=== PATIENT | female | born 1935 | race African-American/Black ===

== ENCOUNTER 2017-10-21 05:09 | Inpatient (IN) | payer MEDICARE, OTHER ==
[~2017-10-21] VITALS: Ht 172.7 cm; Wt 75.4 kg
[2017-10-21] VITALS (60 sets, daily range): BP systolic 108–168; BP diastolic 28–67
[2017-10-21] MEDS ORDERED: ETOMIDATE (2MG/ML) 20ML VIAL IV ONE ×2 (05:14→05:30)
[2017-10-21] MEDS ORDERED: SUCCINYLCHOLINE CHLORIDE 20 MG/ML 10ML VIAL IV ONE ×2 (05:15→05:30)
[2017-10-21] MEDS ORDERED: MIDAZOLAM DRIP 50 mg/50mL 50 ML IV ONE (05:29)
[2017-10-21] MEDS ORDERED: FUROSEMIDE 20 MG/2 ML VIAL IV ONE (05:30)
[2017-10-21] MEDS ORDERED: methylPREDNISolone SOD SUCC 125 MG/2 ML VL ONE (05:37)
[2017-10-21] MEDS ORDERED: methylPREDNISolone SOD SUCC 125 MG/2 ML VL IV ONE (05:45)
[2017-10-21] MEDS ORDERED: PROPOFOL 100 ML IV ONE (06:05)
[2017-10-21 06:14] LABS: Hemoglobin 9.3 g/dL (12.2-16.2)
[2017-10-21 06:17] LABS: Hematocrit 31.8 % (36.0-46.0); Mean Corpuscular Hemoglobin 25.3 pg (28.0-32.0); Mean Corpuscular Hgb Conc. 29.4 g/dL (32.0-36.0); Platelet Count (auto) 401 10^3/uL (140-450); Red Cell Distribution Width 19.5 % (11.8-14.3)
[2017-10-21 06:33] LABS: INR 1.17 (0.9-1.15); Partial Thromboplastin Time 25.6 sec (23.78-33.04); Prothrombin Time 12.4 sec (9.27-12.13)
[2017-10-21 06:37] LABS: Band Neutrophils % (manual) 0; Basophils % (manual) 0 (0.0-2.0); Blast Cells 0; Promyelocytes % 0
[2017-10-21 07:07] LABS: Albumin 2.8 g/dL (3.4-5.0); BUN/Creatinine Ratio 10.8; Bilirubin, Total 1.1 mg/dL (0.2-1.0); Calcium 8.7 mg/dL (8.5-10.1); Magnesium 2.8 mg/dL (1.6-2.6); Potassium 4.1 mmol/L (3.5-5.1)
[2017-10-21] MEDS: MIDAZOLAM DRIP 50 mg/50mL 50 ML IV SCH ×5 (07:26→20:13)
[2017-10-21 07:29] LABS: Urine Bacteria NONE SEEN /hpf (None Seen); Urine Blood Negative /uL (Negative); Urine Specific Gravity 1.017 (1.001-1.035); Urine WBC 1 /hpf (0 - 5)
[2017-10-21 08:55] LABS: Eosinophils % (manual) 2 (0-7); Lymphocytes % (manual) 34 (10.0-50.0); Metamyelocytes % 1; Monocytes % (manual) 12 (0-12); Myelocytes % 1; Reactive Lymphocytes 2
[2017-10-21] MEDS ORDERED: DEXTROSE (50%) 50ML SYRG IV PRN (09:30)
[2017-10-21] MEDS ORDERED: MORPHINE SULF INJ 2 MG/ML SYRINGE 1ML IV PRN ×2 (09:45)
[2017-10-21] MEDS ORDERED: VANCOMYCIN PER PHARMACY 0 MG IV SCH (09:45)
[2017-10-21] MEDS ORDERED: ONDANSETRON HCL 4 MG/2 ML VIAL IV PRN (09:45)
[2017-10-21] MEDS ORDERED: PIPERACILLIN-TAZOB 2.25GM 50 ML IV ONE ×2 (09:45→09:48)
[2017-10-21] MEDS ORDERED: NITROGLYCERIN 0.4 MG SL TAB SL PRN (09:45)
[2017-10-21] MEDS: PROPOFOL 100 ML IV SCH ×2 (09:47→15:36)
[2017-10-21] MEDS ORDERED: FUROSEMIDE 40 MG/4 ML VIAL IV SCH ×2 (10:00→18:00)
[2017-10-21] MEDS: FAMOTIDINE (10MG/ML) 2ML VL IV SCH (10:00)
[2017-10-21] MEDS: SODIUM CHLORIDE 0.9% 1,000 ML IV SCH (10:15)
[2017-10-21] MEDS: ENOXAPARIN SOD 40 MG/0.4 ML SYRINGE SC SCH (10:15)
[2017-10-21] MEDS ORDERED: VANCOMYCIN 1GM/250ML 250 ML IV ONE (11:00)
[2017-10-21] MEDS: PANTOPRAZOLE 40 MG/10 ML VIAL IV SCH (11:12)
[2017-10-21] MEDS: methylPREDNISolone SOD SUCC 40 MG/ML VL IV SCH ×2 (11:20→18:00)
[2017-10-21] MEDS: ALBUTEROL SULF 2.5 MG/0.5ML(0.5%) NEB SOLN NEB SCH ×2 (12:00→18:12)
[2017-10-21] MEDS: IPRATROPIUM BROM 0.5 MG/2.5ML INH SOL NEB SCH ×2 (12:00→18:12)
[2017-10-21] MEDS: InsuLIN REG 1unit/0.01ml Soln (100units/ml) SC SCH ×2 (12:01→18:00)
[2017-10-21] MEDS: ACCU-CHEK COMFORT CURVE STRIP VI SCH ×2 (12:01→18:00)
[2017-10-21] MEDS: PIPERACILLIN-TAZOB 2.25GM 50 ML IV SCH ×2 (12:45→18:00)
[2017-10-21] MEDS ORDERED: AMLO5TAB2 PO (17:49)
[2017-10-21] MEDS ORDERED: ENOX40IN7 SC (17:49)
[2017-10-21] MEDS ORDERED: ASCO500T11 PO (17:49)
[2017-10-21] MEDS ORDERED: BACL10TA PO (17:49)
[2017-10-21] MEDS ORDERED: INSUINJ18 SC (17:49)
[2017-10-21] MEDS ORDERED: TEMA30CA PO (17:49)
[2017-10-21] MEDS ORDERED: PROM25TA5 PO (17:49)
[2017-10-21] MEDS ORDERED: CIPR-187 PO (17:49)
[2017-10-21] MEDS ORDERED: METO-158 PO (17:49)
[2017-10-21] MEDS ORDERED: INSLANTI SC (17:49)
[2017-10-21] MEDS ORDERED: FURO20TA PO (17:49)
[2017-10-21] MEDS ORDERED: PERCOT PO (17:49)
[2017-10-21] MEDS ORDERED: HYDR-4296 PO (17:49)
[2017-10-21] MEDS ORDERED: DRON2.5C PO (17:49)
[2017-10-21] MEDS: POTASSIUM CHL 20MEQ/100ML 100 ML IV SCH (23:30)
[2017-10-21] MEDS: FUROSEMIDE INJECTION 250 MG in D5W 5% 225 ML IV SCH (23:30)
[2017-10-22] VITALS (108 sets, daily range): BP systolic 120–185; BP diastolic 39–99
[2017-10-22] MEDS: ALBUTEROL SULF 2.5 MG/0.5ML(0.5%) NEB SOLN NEB SCH ×4 (00:23→18:34)
[2017-10-22] MEDS: IPRATROPIUM BROM 0.5 MG/2.5ML INH SOL NEB SCH ×4 (00:23→18:34)
[2017-10-22] MEDS: SODIUM CHLORIDE 0.9% 1,000 ML IV SCH ×2 (02:30→19:01)
[2017-10-22 03:54] LABS: Basophils # (auto) 0 uL; Eosinophils # (auto) 0 uL; Hemoglobin 9.5 g/dL (12.2-16.2); Lymphocytes # (auto) 1.3 uL; Lymphocytes % (auto) 4.7 % (10.0-50.0); Nucleated Red Blood Cells % 0.2 %
[2017-10-22 03:56] LABS: Basophils % (auto) 0.1 % (0.0-2.0); Hematocrit 30.7 % (36.0-46.0); Mean Corpuscular Hemoglobin 25.3 pg (28.0-32.0); Mean Corpuscular Hgb Conc. 30.8 g/dL (32.0-36.0); Monocytes # (auto) 0.6 uL; Monocytes % (auto) 2.2 % (0.0-12.0); Platelet Count (auto) 442 10^3/uL (140-450); Red Blood Cells 3.75 10^6/uL (4.0-5.20); Red Cell Distribution Width 18.2 % (11.8-14.3); White Blood Cell 27.9 10^3/uL (4.4-10.8)
[2017-10-22 04:10] LABS: Potassium 3.5 mmol/L (3.5-5.1)
[2017-10-22 04:16] LABS: Albumin 2.4 g/dL (3.4-5.0); BUN/Creatinine Ratio 14.1; Calcium 8.5 mg/dL (8.5-10.1)
[2017-10-22 04:20] LABS: Total Protein 7.7 g/dL (6.4-8.2)
[2017-10-22] MEDS: ACCU-CHEK COMFORT CURVE STRIP VI SCH ×4 (06:12→18:44)
[2017-10-22] MEDS: methylPREDNISolone SOD SUCC 40 MG/ML VL IV SCH ×4 (06:41→18:44)
[2017-10-22] MEDS: PIPERACILLIN-TAZOB 2.25GM 50 ML IV SCH ×4 (06:42→18:44)
[2017-10-22] MEDS: InsuLIN REG 1unit/0.01ml Soln (100units/ml) SC SCH ×4 (06:42→18:44)
[2017-10-22] MEDS: POTASSIUM CHL 20MEQ/100ML 100 ML IV SCH ×3 (08:17→22:00)
[2017-10-22] MEDS: MIDAZOLAM DRIP 50 mg/50mL 50 ML IV SCH ×3 (08:28→19:01)
[2017-10-22] MEDS: FAMOTIDINE (10MG/ML) 2ML VL IV SCH (10:30)
[2017-10-22] MEDS: PANTOPRAZOLE 40 MG/10 ML VIAL IV SCH (10:31)
[2017-10-22] MEDS: ENOXAPARIN SOD 40 MG/0.4 ML SYRINGE SC SCH (10:33)
[2017-10-22] MEDS ORDERED: POTASSIUM CHL 20MEQ/100ML 100 ML IV ONE ×2 (11:15)
[2017-10-22] MEDS: PROPOFOL 100 ML IV SCH ×2 (13:05→19:00)
[2017-10-22] MEDS: amLODIPine BESYLATE 5 MG TAB PO SCH (13:08)
[2017-10-22] MEDS: METOPROLOL TARTRATE 25 MG TAB PO SCH ×2 (14:25→22:00)
[2017-10-22] MEDS: FUROSEMIDE INJECTION 250 MG in D5W 5% 225 ML IV SCH (18:00)
[2017-10-22] MEDS ORDERED: ACETAMINOPHEN IV 100 ML IV ONE (20:22)
[2017-10-23] VITALS (88 sets, daily range): BP systolic 48–174; BP diastolic 31–137
[2017-10-23] MEDS: ALBUTEROL SULF 2.5 MG/0.5ML(0.5%) NEB SOLN NEB SCH ×4 (00:15→18:20)
[2017-10-23] MEDS: IPRATROPIUM BROM 0.5 MG/2.5ML INH SOL NEB SCH ×4 (00:15→18:20)
[2017-10-23] MEDS: MIDAZOLAM DRIP 50 mg/50mL 50 ML IV SCH ×2 (01:02→18:30)
[2017-10-23] MEDS: InsuLIN REG 1unit/0.01ml Soln (100units/ml) SC SCH ×4 (01:04→18:33)
[2017-10-23 05:30] LABS: BUN/Creatinine Ratio 14.3; Basophils # (auto) 0 uL; Calcium 8.5 mg/dL (8.5-10.1); Eosinophils # (auto) 0 uL; Hemoglobin 9.5 g/dL (12.2-16.2); Lymphocytes % (auto) 2.9 % (10.0-50.0); Mean Corpuscular Hemoglobin 25.2 pg (28.0-32.0); Mean Corpuscular Hgb Conc. 30.8 g/dL (32.0-36.0); Mean Corpuscular Volume 81.9 fL (80.0-100.0); Monocytes # (auto) 0.7 uL; Monocytes % (auto) 2.2 % (0.0-12.0); Neutrophils # (auto) 31.6 uL; Neutrophils % (auto) 94.9 % (37.0-80.0); Nucleated Red Blood Cells % 0.2 %; Platelet Count (auto) 576 10^3/uL (140-450); Potassium 3.6 mmol/L (3.5-5.1); Red Blood Cells 3.78 10^6/uL (4.0-5.20); Red Cell Distribution Width 19.3 % (11.8-14.3)
[2017-10-23] MEDS: methylPREDNISolone SOD SUCC 40 MG/ML VL IV SCH ×4 (06:00→18:20)
[2017-10-23] MEDS: POTASSIUM CHL 20MEQ/100ML 100 ML IV SCH ×3 (06:00→22:12)
[2017-10-23] MEDS: ACCU-CHEK COMFORT CURVE STRIP VI SCH ×4 (06:00→18:21)
[2017-10-23] MEDS: PIPERACILLIN-TAZOB 2.25GM 50 ML IV SCH ×4 (06:00→18:21)
[2017-10-23 06:38] LABS: White Blood Cell 33.3 10^3/uL (4.4-10.8)
[2017-10-23] MEDS: ENOXAPARIN SOD 40 MG/0.4 ML SYRINGE SC SCH (09:20)
[2017-10-23] MEDS: FAMOTIDINE (10MG/ML) 2ML VL IV SCH (09:20)
[2017-10-23] MEDS: PANTOPRAZOLE 40 MG/10 ML VIAL IV SCH (09:20)
[2017-10-23] MEDS: PROPOFOL 100 ML IV SCH (09:21)
[2017-10-23] MEDS: amLODIPine BESYLATE 5 MG TAB PO SCH (09:22)
[2017-10-23] MEDS: METOPROLOL TARTRATE 25 MG TAB PO SCH ×2 (10:28→22:00)
[2017-10-23] MEDS ORDERED: OXYCODONE W/ ACETAMINOPHEN 5/325MG TABLET PO ONE (10:30)
[2017-10-23] MEDS ORDERED: LIDOCAINE 1% (LOCAL ANESTH.) PF 5ml SDV ID ONE (15:45)
[2017-10-23] MEDS: VANCOMYCIN 1GM/250ML 250 ML IV SCH (16:30)
[2017-10-23] MEDS: FUROSEMIDE INJECTION 250 MG in D5W 5% 225 ML IV SCH (20:07)
[2017-10-23] MEDS: SODIUM CHLOR 0.9% PF (SALINE LOCK) 10ML VIAL/SYR IV SCH (22:08)
[2017-10-23] MEDS ORDERED: ALBUMIN 5% 250 ML IV ONE (22:46)
[2017-10-23] MEDS ORDERED: ALBUMIN 5% 250 ML IV SCH (23:00)
[2017-10-24] VITALS (102 sets, daily range): BP systolic 75–141; BP diastolic 43–82
[2017-10-24] MEDS: NOREPINEPHRINE 8 MG/250ML KIT 250 ML IV SCH ×2 (00:14→19:33)
[2017-10-24] MEDS: ALBUTEROL SULF 2.5 MG/0.5ML(0.5%) NEB SOLN NEB SCH ×4 (00:18→17:59)
[2017-10-24] MEDS: IPRATROPIUM BROM 0.5 MG/2.5ML INH SOL NEB SCH ×4 (00:18→17:59)
[2017-10-24] MEDS: ACCU-CHEK COMFORT CURVE STRIP VI SCH ×4 (00:23→18:17)
[2017-10-24] MEDS: methylPREDNISolone SOD SUCC 40 MG/ML VL IV SCH ×4 (00:23→22:06)
[2017-10-24] MEDS: PIPERACILLIN-TAZOB 2.25GM 50 ML IV SCH ×4 (00:23→18:17)
[2017-10-24] MEDS: InsuLIN REG 1unit/0.01ml Soln (100units/ml) SC SCH ×4 (00:24→18:27)
[2017-10-24] MEDS: MIDAZOLAM DRIP 50 mg/50mL 50 ML IV SCH ×4 (00:30→20:41)
[2017-10-24 04:10] LABS: Basophils # (auto) 0 uL; Eosinophils # (auto) 0 uL; Nucleated Red Blood Cells % 0.2 %
[2017-10-24 04:13] LABS: Basophils % (auto) 0.1 % (0.0-2.0); Hematocrit 32.9 % (36.0-46.0); Hemoglobin 10.3 g/dL (12.2-16.2); Lymphocytes # (auto) 0.7 uL; Lymphocytes % (auto) 2.2 % (10.0-50.0); Mean Corpuscular Hemoglobin 25.7 pg (28.0-32.0); Mean Corpuscular Hgb Conc. 31.2 g/dL (32.0-36.0); Mean Corpuscular Volume 82.5 fL (80.0-100.0); Monocytes # (auto) 0.7 uL; Monocytes % (auto) 2.2 % (0.0-12.0); Neutrophils # (auto) 29.6 uL; Neutrophils % (auto) 95.5 % (37.0-80.0); Platelet Count (auto) 601 10^3/uL (140-450); Red Blood Cells 3.98 10^6/uL (4.0-5.20); Red Cell Distribution Width 19.3 % (11.8-14.3)
[2017-10-24 04:32] LABS: Potassium 3.2 mmol/L (3.5-5.1)
[2017-10-24 05:31] LABS: Calcium 8.9 mg/dL (8.5-10.1)
[2017-10-24 05:56] LABS: BUN/Creatinine Ratio 17.9
[2017-10-24] MEDS: POTASSIUM CHL 20MEQ/100ML 100 ML IV SCH (06:00)
[2017-10-24] MEDS ORDERED: SODIUM CHLORIDE 0.9% 1,000 ML IV ONE (06:30)
[2017-10-24] MEDS ORDERED: DEXTROSE (50%) 50ML SYRG IV PRN (06:30)
[2017-10-24] MEDS: ALBUMIN 25% 100 ML IV SCH ×3 (08:09→18:23)
[2017-10-24] MEDS: PROPOFOL 100 ML IV SCH ×3 (09:23→20:41)
[2017-10-24] MEDS: FAMOTIDINE (10MG/ML) 2ML VL IV SCH (09:41)
[2017-10-24] MEDS: PANTOPRAZOLE 40 MG/10 ML VIAL IV SCH (09:42)
[2017-10-24] MEDS: ENOXAPARIN SOD 80 MG/0.8ML SYRINGE SC SCH ×2 (09:42→22:06)
[2017-10-24] MEDS: SODIUM CHLOR 0.9% PF (SALINE LOCK) 10ML VIAL/SYR IV SCH ×2 (09:42→22:06)
[2017-10-24] MEDS: METOPROLOL TARTRATE 25 MG TAB PO SCH ×2 (10:00→22:00)
[2017-10-24] MEDS: VANCOMYCIN 1GM/250ML 250 ML IV SCH (14:08)
[2017-10-24] MEDS: FUROSEMIDE INJECTION 250 MG in D5W 5% 225 ML IV SCH (18:00)
[2017-10-24] MEDS ORDERED: InsuLIN REG 1unit/0.01ml Soln (100units/ml) IV ONE (18:30)
[2017-10-25] VITALS (106 sets, daily range): BP systolic 108–179; BP diastolic 47–88
[2017-10-25] MEDS: ALBUTEROL SULF 2.5 MG/0.5ML(0.5%) NEB SOLN NEB SCH ×4 (00:19→18:30)
[2017-10-25] MEDS: IPRATROPIUM BROM 0.5 MG/2.5ML INH SOL NEB SCH ×4 (00:19→18:30)
[2017-10-25] MEDS: ALBUMIN 25% 100 ML IV SCH ×4 (00:30→11:49)
[2017-10-25] MEDS: MIDAZOLAM DRIP 50 mg/50mL 50 ML IV SCH ×5 (00:48→22:47)
[2017-10-25] MEDS: PROPOFOL 100 ML IV SCH ×3 (00:48→08:55)
[2017-10-25 03:48] LABS: Basophils # (auto) 0 uL; Eosinophils # (auto) 0 uL; Mean Corpuscular Volume 83.4 fL (80.0-100.0); Monocytes % (auto) 3.6 % (0.0-12.0)
[2017-10-25 03:50] LABS: Hematocrit 27.9 % (36.0-46.0); Hemoglobin 8.5 g/dL (12.2-16.2); Lymphocytes % (auto) 3.9 % (10.0-50.0); Mean Corpuscular Hemoglobin 25.4 pg (28.0-32.0); Mean Corpuscular Hgb Conc. 30.5 g/dL (32.0-36.0); Neutrophils # (auto) 24.8 uL; Neutrophils % (auto) 92.5 % (37.0-80.0); Nucleated Red Blood Cells % 0.1 %; Platelet Count (auto) 464 10^3/uL (140-450); Red Blood Cells 3.35 10^6/uL (4.0-5.20); Red Cell Distribution Width 18.7 % (11.8-14.3); White Blood Cell 26.9 10^3/uL (4.4-10.8)
[2017-10-25 04:04] LABS: BUN/Creatinine Ratio 24.1; Calcium 8.7 mg/dL (8.5-10.1); Potassium 3.3 mmol/L (3.5-5.1)
[2017-10-25] MEDS: ACCU-CHEK COMFORT CURVE STRIP VI SCH ×4 (06:00→17:00)
[2017-10-25] MEDS: InsuLIN REG 1unit/0.01ml Soln (100units/ml) SC SCH ×4 (06:00→17:02)
[2017-10-25] MEDS ORDERED: FUROSEMIDE 40 MG/4 ML VIAL IV SCH (06:15)
[2017-10-25] MEDS: PIPERACILLIN-TAZOB 2.25GM 50 ML IV SCH ×4 (06:32→17:00)
[2017-10-25] MEDS: INSULIN NPH Isophane (HUMAN) 1unit/0.01ml Susp(100units/ml) SC SCH ×2 (07:06→18:11)
[2017-10-25] MEDS: FAMOTIDINE (10MG/ML) 2ML VL IV SCH (10:00)
[2017-10-25] MEDS: METOPROLOL TARTRATE 25 MG TAB PO SCH ×2 (10:00→21:48)
[2017-10-25] MEDS: PANTOPRAZOLE 40 MG/10 ML VIAL IV SCH (10:37)
[2017-10-25] MEDS: methylPREDNISolone SOD SUCC 40 MG/ML VL IV SCH (10:37)
[2017-10-25] MEDS: ENOXAPARIN SOD 80 MG/0.8ML SYRINGE SC SCH ×2 (10:37→21:47)
[2017-10-25] MEDS: POTASSIUM EFFERVESENT TAB 25 MEQ GT SCH ×2 (10:37→21:48)
[2017-10-25] MEDS: FUROSEMIDE INJECTION 250 MG in D5W 5% 225 ML IV SCH (10:38)
[2017-10-25] MEDS: SODIUM CHLOR 0.9% PF (SALINE LOCK) 10ML VIAL/SYR IV SCH ×2 (10:38→21:48)
[2017-10-25] MEDS ORDERED: Glucerna 1.2 Cal 1Liter BOTTLE GT SCH (15:30)
[2017-10-25] MEDS: VANCOMYCIN 1GM/250ML 250 ML IV SCH (15:34)
[2017-10-25] MEDS ORDERED: BENAZEPRIL HCL 10 MG TAB PO ONE (18:45)
[2017-10-25 19:49] LABS: Magnesium 2.2 mg/dL (1.6-2.6); Potassium 4.1 mmol/L (3.5-5.1)
[2017-10-25] MEDS: NOREPINEPHRINE 8 MG/250ML KIT 250 ML IV SCH (22:40)
[2017-10-26] VITALS (101 sets, daily range): BP systolic 85–185; BP diastolic 52–89
[2017-10-26] MEDS: ALBUTEROL SULF 2.5 MG/0.5ML(0.5%) NEB SOLN NEB SCH ×4 (00:13→18:19)
[2017-10-26] MEDS: IPRATROPIUM BROM 0.5 MG/2.5ML INH SOL NEB SCH ×4 (00:13→18:19)
[2017-10-26] MEDS: ACCU-CHEK COMFORT CURVE STRIP VI SCH ×4 (00:31→18:05)
[2017-10-26] MEDS: InsuLIN REG 1unit/0.01ml Soln (100units/ml) SC SCH ×4 (00:35→18:18)
[2017-10-26] MEDS: PIPERACILLIN-TAZOB 2.25GM 50 ML IV SCH ×4 (00:36→18:18)
[2017-10-26] MEDS: PROPOFOL 100 ML IV SCH ×3 (00:41→13:38)
[2017-10-26 03:56] LABS: Eosinophils # (auto) 0 uL; Hemoglobin 8.9 g/dL (12.2-16.2)
[2017-10-26 03:59] LABS: Basophils # (auto) 0.1 uL; Basophils % (auto) 0.3 % (0.0-2.0); Hematocrit 28.6 % (36.0-46.0); Lymphocytes # (auto) 1.4 uL; Lymphocytes % (auto) 5.8 % (10.0-50.0); Mean Corpuscular Hemoglobin 25.8 pg (28.0-32.0); Mean Corpuscular Volume 83.3 fL (80.0-100.0); Monocytes # (auto) 1.2 uL; Monocytes % (auto) 4.8 % (0.0-12.0); Neutrophils # (auto) 21.9 uL; Neutrophils % (auto) 89.1 % (37.0-80.0); Nucleated Red Blood Cells % 0.3 %; Platelet Count (auto) 409 10^3/uL (140-450); Red Blood Cells 3.43 10^6/uL (4.0-5.20); Red Cell Distribution Width 18.8 % (11.8-14.3); White Blood Cell 24.6 10^3/uL (4.4-10.8)
[2017-10-26 04:07] LABS: BUN/Creatinine Ratio 29.9; Calcium 9.1 mg/dL (8.5-10.1); Magnesium 2.7 mg/dL (1.6-2.6); Potassium 3.8 mmol/L (3.5-5.1)
[2017-10-26] MEDS: INSULIN NPH Isophane (HUMAN) 1unit/0.01ml Susp(100units/ml) SC SCH ×2 (08:16→18:18)
[2017-10-26] MEDS: PANTOPRAZOLE 40 MG/10 ML VIAL IV SCH (09:27)
[2017-10-26] MEDS: VANCOMYCIN 1GM/250ML 250 ML IV SCH (09:27)
[2017-10-26] MEDS: FAMOTIDINE (10MG/ML) 2ML VL IV SCH (09:27)
[2017-10-26] MEDS: SODIUM CHLOR 0.9% PF (SALINE LOCK) 10ML VIAL/SYR IV SCH ×2 (09:28→22:00)
[2017-10-26] MEDS: ENOXAPARIN SOD 80 MG/0.8ML SYRINGE SC SCH ×2 (09:28→23:11)
[2017-10-26] MEDS: METOPROLOL TARTRATE 25 MG TAB PO SCH ×2 (09:28→23:10)
[2017-10-26] MEDS: Glucerna 1.2 Cal 1Liter BOTTLE GT SCH (09:39)
[2017-10-26] MEDS ORDERED: BENAZEPRIL HCL 10 MG TAB PO SCH (10:00)
[2017-10-26 11:16] LABS: Urine Bacteria NONE SEEN /hpf (None Seen); Urine Blood 2+ /uL (Negative); Urine Budding Yeast MODERATE /hpf (None Seen); Urine Hyaline Cast FEW /lpf (0 - 2); Urine Mucus FEW (None Seen); Urine Specific Gravity 1.011 (1.001-1.035); Urine WBC 32 /hpf (0 - 5)
[2017-10-26] MEDS: FUROSEMIDE INJECTION 250 MG in SODIUM CHL 0.9% 225 ML IV SCH (12:52)
[2017-10-26] MEDS: hydrALAZINE HCL 25 MG TAB PO SCH ×2 (14:55→23:09)
[2017-10-26 16:57] LABS: BUN/Creatinine Ratio 30.7; Calcium 8.7 mg/dL (8.5-10.1); Potassium 3.7 mmol/L (3.5-5.1)
[2017-10-26] MEDS: hydrALAZINE HCL 20 MG/ML VL IV PRN (19:02)
[2017-10-27] VITALS (105 sets, daily range): BP systolic 122–185; BP diastolic 50–88
[2017-10-27] MEDS: IPRATROPIUM BROM 0.5 MG/2.5ML INH SOL NEB SCH ×4 (01:04→18:22)
[2017-10-27] MEDS: ALBUTEROL SULF 2.5 MG/0.5ML(0.5%) NEB SOLN NEB SCH ×4 (01:05→18:22)
[2017-10-27] MEDS: hydrALAZINE HCL 20 MG/ML VL IV PRN (01:49)
[2017-10-27] MEDS: VANCOMYCIN 1GM/250ML 250 ML IV SCH (03:00)
[2017-10-27 03:57] LABS: Hemoglobin 9.2 g/dL (12.2-16.2)
[2017-10-27 03:58] LABS: Hematocrit 29.8 % (36.0-46.0); Mean Corpuscular Hemoglobin 25.5 pg (28.0-32.0); Mean Corpuscular Hgb Conc. 30.9 g/dL (32.0-36.0); Mean Corpuscular Volume 82.6 fL (80.0-100.0); Platelet Count (auto) 508 10^3/uL (140-450); Red Blood Cells 3.61 10^6/uL (4.0-5.20); Red Cell Distribution Width 19.2 % (11.8-14.3); White Blood Cell 25.8 10^3/uL (4.4-10.8)
[2017-10-27 04:03] LABS: Band Neutrophils % (manual) 0; Basophils % (manual) 0 (0.0-2.0); Blast Cells 0; Eosinophils % (manual) 0 (0-7); Metamyelocytes % 0; Myelocytes % 0; Promyelocytes % 0; Reactive Lymphocytes 0
[2017-10-27 04:16] LABS: BUN/Creatinine Ratio 34.6; Calcium 8.8 mg/dL (8.5-10.1); Potassium 3.4 mmol/L (3.5-5.1)
[2017-10-27 05:47] LABS: Lymphocytes % (manual) 6 (10.0-50.0); Monocytes % (manual) 3 (0-12)
[2017-10-27] MEDS ORDERED: POTASSIUM EFFERVESENT TAB 25 MEQ GT ONE (06:15)
[2017-10-27] MEDS: PIPERACILLIN-TAZOB 2.25GM 50 ML IV SCH ×2 (06:27)
[2017-10-27] MEDS: InsuLIN REG 1unit/0.01ml Soln (100units/ml) SC SCH ×4 (06:28→18:24)
[2017-10-27] MEDS: ACCU-CHEK COMFORT CURVE STRIP VI SCH ×4 (06:28→17:49)
[2017-10-27] MEDS: hydrALAZINE HCL 25 MG TAB PO SCH ×3 (06:29→23:47)
[2017-10-27] MEDS: ENOXAPARIN SOD 80 MG/0.8ML SYRINGE SC SCH ×2 (10:21→23:47)
[2017-10-27] MEDS: PANTOPRAZOLE 40 MG/10 ML VIAL IV SCH (10:21)
[2017-10-27] MEDS: SODIUM CHLOR 0.9% PF (SALINE LOCK) 10ML VIAL/SYR IV SCH ×2 (10:22→22:00)
[2017-10-27] MEDS: MIDAZOLAM DRIP 50 mg/50mL 50 ML IV SCH (10:22)
[2017-10-27] MEDS: METOPROLOL TARTRATE 25 MG TAB PO SCH ×2 (10:22→23:46)
[2017-10-27] MEDS: FAMOTIDINE (10MG/ML) 2ML VL IV SCH (10:22)
[2017-10-27] MEDS: INSULIN NPH Isophane (HUMAN) 1unit/0.01ml Susp(100units/ml) SC SCH ×2 (10:58→18:24)
[2017-10-27] MEDS: PIPERACILLIN-TAZOB 3.375GM 100 ML IV SCH ×2 (12:12→17:40)
[2017-10-27] MEDS: Glucerna 1.2 Cal 1Liter BOTTLE GT SCH (12:13)
[2017-10-27] MEDS: FUROSEMIDE INJECTION 250 MG in SODIUM CHL 0.9% 225 ML IV SCH (12:21)
[2017-10-27] MEDS: METOCLOPRAMIDE HCL 5MG/ml INJ 2ml VIAL IV SCH ×2 (14:54→23:47)
[2017-10-27] MEDS: PROPOFOL 100 ML IV SCH (18:23)
[2017-10-27 18:54] LABS: Hematocrit 33.2 % (36.0-46.0); Hemoglobin 10.4 g/dL (12.2-16.2); Mean Corpuscular Hemoglobin 26.1 pg (28.0-32.0); Mean Corpuscular Hgb Conc. 31.3 g/dL (32.0-36.0); Mean Corpuscular Volume 83.5 fL (80.0-100.0); Platelet Count (auto) 544 10^3/uL (140-450); Red Blood Cells 3.98 10^6/uL (4.0-5.20); Red Cell Distribution Width 19.8 % (11.8-14.3); White Blood Cell 26.3 10^3/uL (4.4-10.8)
[2017-10-27 19:05] LABS: Basophils % (manual) 0 (0.0-2.0); Blast Cells 0; Eosinophils % (manual) 0 (0-7); Myelocytes % 0; Promyelocytes % 0; Reactive Lymphocytes 0
[2017-10-27 19:58] LABS: Band Neutrophils % (manual) 5; Lymphocytes % (manual) 9 (10.0-50.0); Metamyelocytes % 2; Monocytes % (manual) 6 (0-12)
[2017-10-28] VITALS (101 sets, daily range): BP systolic 97–198; BP diastolic 46–94
[2017-10-28] MEDS: IPRATROPIUM BROM 0.5 MG/2.5ML INH SOL NEB SCH ×4 (00:15→18:51)
[2017-10-28] MEDS: ALBUTEROL SULF 2.5 MG/0.5ML(0.5%) NEB SOLN NEB SCH ×4 (00:15→18:50)
[2017-10-28] MEDS: PIPERACILLIN-TAZOB 3.375GM 100 ML IV SCH ×4 (00:26→18:00)
[2017-10-28 04:47] LABS: BUN/Creatinine Ratio 35.8; Calcium 9.5 mg/dL (8.5-10.1); Phosphorus 3.2 mg/dL (2.5-4.90); Potassium 3.6 mmol/L (3.5-5.1); Uric Acid 5.6 mg/dL (2.6-6.0)
[2017-10-28] MEDS: METOCLOPRAMIDE HCL 5MG/ml INJ 2ml VIAL IV SCH ×3 (05:48→23:00)
[2017-10-28] MEDS: hydrALAZINE HCL 25 MG TAB PO SCH ×3 (06:18→23:00)
[2017-10-28] MEDS: InsuLIN REG 1unit/0.01ml Soln (100units/ml) SC SCH ×4 (06:19→18:00)
[2017-10-28] MEDS: ACCU-CHEK COMFORT CURVE STRIP VI SCH ×4 (06:19→18:00)
[2017-10-28] MEDS ORDERED: FUROSEMIDE INJECTION 250 MG in SODIUM CHL 0.9% 225 ML IV SCH (06:45)
[2017-10-28] MEDS: INSULIN NPH Isophane (HUMAN) 1unit/0.01ml Susp(100units/ml) SC SCH ×2 (07:00→18:00)
[2017-10-28 07:22] LABS: Hematocrit 34.7 % (36.0-46.0); Hemoglobin 10.6 g/dL (12.2-16.2); Mean Corpuscular Hemoglobin 25.5 pg (28.0-32.0); Mean Corpuscular Hgb Conc. 30.7 g/dL (32.0-36.0); Mean Corpuscular Volume 83.2 fL (80.0-100.0); Platelet Count (auto) 544 10^3/uL (140-450); Red Blood Cells 4.17 10^6/uL (4.0-5.20); Red Cell Distribution Width 19.3 % (11.8-14.3); White Blood Cell 25.6 10^3/uL (4.4-10.8)
[2017-10-28 07:24] LABS: Basophils % (manual) 0 (0.0-2.0); Blast Cells 0; Eosinophils % (manual) 0 (0-7); Metamyelocytes % 0; Myelocytes % 0; Promyelocytes % 0; Reactive Lymphocytes 0
[2017-10-28 08:16] LABS: Band Neutrophils % (manual) 4; Lymphocytes % (manual) 13 (10.0-50.0); Monocytes % (manual) 5 (0-12)
[2017-10-28] MEDS: MIDAZOLAM DRIP 50 mg/50mL 50 ML IV SCH (09:23)
[2017-10-28] MEDS: PANTOPRAZOLE 40 MG/10 ML VIAL IV SCH (09:41)
[2017-10-28] MEDS: METOPROLOL TARTRATE 25 MG TAB PO SCH ×2 (09:42→23:00)
[2017-10-28] MEDS: ENOXAPARIN SOD 80 MG/0.8ML SYRINGE SC SCH (09:42)
[2017-10-28] MEDS: FAMOTIDINE (10MG/ML) 2ML VL IV SCH (09:43)
[2017-10-28] MEDS: SODIUM CHLOR 0.9% PF (SALINE LOCK) 10ML VIAL/SYR IV SCH ×2 (09:43→23:00)
[2017-10-28] MEDS ORDERED: hydrALAZINE HCL 20 MG/ML VL ONE (11:08)
[2017-10-28] MEDS: hydrALAZINE HCL 20 MG/ML VL IV PRN (11:14)
[2017-10-28] MEDS: PROPOFOL 100 ML IV SCH (12:15)
[2017-10-29] VITALS (89 sets, daily range): BP systolic 108–192; BP diastolic 44–84
[2017-10-29] MEDS: IPRATROPIUM BROM 0.5 MG/2.5ML INH SOL NEB SCH ×4 (00:25→18:11)
[2017-10-29] MEDS: ALBUTEROL SULF 2.5 MG/0.5ML(0.5%) NEB SOLN NEB SCH ×4 (00:25→18:18)
[2017-10-29] MEDS: ACCU-CHEK COMFORT CURVE STRIP VI SCH ×4 (01:00→17:44)
[2017-10-29] MEDS: InsuLIN REG 1unit/0.01ml Soln (100units/ml) SC SCH ×4 (01:00→17:45)
[2017-10-29] MEDS: PIPERACILLIN-TAZOB 3.375GM 100 ML IV SCH ×4 (01:00→17:43)
[2017-10-29] MEDS: hydrALAZINE HCL 20 MG/ML VL IV PRN ×3 (01:10→14:21)
[2017-10-29] MEDS: METOCLOPRAMIDE HCL 5MG/ml INJ 2ml VIAL IV SCH (06:18)
[2017-10-29] MEDS: INSULIN NPH Isophane (HUMAN) 1unit/0.01ml Susp(100units/ml) SC SCH ×2 (06:19→17:36)
[2017-10-29] MEDS: hydrALAZINE HCL 25 MG TAB PO SCH ×3 (06:19→22:00)
[2017-10-29 06:42] LABS: Hematocrit 33.2 % (36.0-46.0); Hemoglobin 10.3 g/dL (12.2-16.2); Mean Corpuscular Volume 83.2 fL (80.0-100.0); Red Blood Cells 3.99 10^6/uL (4.0-5.20)
[2017-10-29 06:43] LABS: Calcium 9.2 mg/dL (8.5-10.1); Magnesium 2.5 mg/dL (1.6-2.6); Potassium 3.2 mmol/L (3.5-5.1)
[2017-10-29 06:44] LABS: Mean Corpuscular Hemoglobin 25.9 pg (28.0-32.0); Mean Corpuscular Hgb Conc. 31.1 g/dL (32.0-36.0); Platelet Count (auto) 492 10^3/uL (140-450); Red Cell Distribution Width 19.2 % (11.8-14.3); White Blood Cell 24.3 10^3/uL (4.4-10.8)
[2017-10-29 06:45] LABS: BUN/Creatinine Ratio 33.9
[2017-10-29 06:46] LABS: INR 1.15 (0.9-1.15); Prothrombin Time 12.2 sec (9.27-12.13)
[2017-10-29 06:55] LABS: Band Neutrophils % (manual) 0; Basophils % (manual) 0 (0.0-2.0); Blast Cells 0; Eosinophils % (manual) 0 (0-7); Myelocytes % 0; Promyelocytes % 0; Reactive Lymphocytes 0
[2017-10-29 07:14] LABS: Lymphocytes % (manual) 13 (10.0-50.0); Metamyelocytes % 2; Monocytes % (manual) 5 (0-12)
[2017-10-29] MEDS ORDERED: D5W/SOD CHL 0.45%/KCL 20MEQ 1,000 ML IV SCH (08:00)
[2017-10-29] MEDS: POTASSIUM CHL 20MEQ/100ML 100 ML IV SCH ×2 (08:50→10:14)
[2017-10-29] MEDS: MIDAZOLAM DRIP 50 mg/50mL 50 ML IV SCH (09:23)
[2017-10-29] MEDS: ENOXAPARIN SOD 80 MG/0.8ML SYRINGE SC SCH (09:29)
[2017-10-29] MEDS ORDERED: IOHEXOL 350 MG/ML 100ML IJ ONE (09:58)
[2017-10-29] MEDS ORDERED: LIDOCAINE 2% (LOCAL ANESTH.) PF 5ml SDV ONE (09:58)
[2017-10-29] MEDS ORDERED: IODIXANOL 320MG/ML 100ML BTL IV ONE ×2 (10:11→12:57)
[2017-10-29] MEDS: METOPROLOL TARTRATE 25 MG TAB PO SCH ×2 (10:13→22:00)
[2017-10-29] MEDS: FAMOTIDINE (10MG/ML) 2ML VL IV SCH (10:14)
[2017-10-29] MEDS: FLUCONAZOLE 200MG/100ML 100 ML IV SCH (10:14)
[2017-10-29] MEDS: PROPOFOL 100 ML IV SCH ×2 (10:14→16:07)
[2017-10-29] MEDS: SODIUM CHLOR 0.9% PF (SALINE LOCK) 10ML VIAL/SYR IV SCH ×2 (10:14→22:00)
[2017-10-29] MEDS: PANTOPRAZOLE 40 MG/10 ML VIAL IV SCH (10:14)
[2017-10-29] MEDS: fentaNYL Drip 2500mCg/250mlNS 250 ML IV SCH (10:15)
[2017-10-29] MEDS ORDERED: SODIUM CHL 0.9% 50 ML ONE (12:55)
[2017-10-29] MEDS ORDERED: ANGIOMAX 250 MG VIAL IV ONE (12:55)
[2017-10-29] MEDS ORDERED: CLOPIDOGREL 300 MG TAB ONE (13:44)
[2017-10-29] MEDS ORDERED: hydrALAZINE HCL 20 MG/ML VL ONE (13:44)
[2017-10-29] MEDS ORDERED: ASPirin 325 MG TAB ONE (13:44)
[2017-10-30] VITALS (101 sets, daily range): BP systolic 119–213; BP diastolic 46–92
[2017-10-30] MEDS: IPRATROPIUM BROM 0.5 MG/2.5ML INH SOL NEB SCH ×4 (00:23→18:19)
[2017-10-30] MEDS: ALBUTEROL SULF 2.5 MG/0.5ML(0.5%) NEB SOLN NEB SCH ×4 (00:23→18:19)
[2017-10-30 03:48] LABS: Hemoglobin 9.6 g/dL (12.2-16.2); White Blood Cell 21.4 10^3/uL (4.4-10.8)
[2017-10-30 03:50] LABS: Hematocrit 31.4 % (36.0-46.0); Mean Corpuscular Hemoglobin 25.3 pg (28.0-32.0); Mean Corpuscular Hgb Conc. 30.5 g/dL (32.0-36.0); Mean Corpuscular Volume 82.9 fL (80.0-100.0); Platelet Count (auto) 425 10^3/uL (140-450); Red Blood Cells 3.78 10^6/uL (4.0-5.20); Red Cell Distribution Width 19.6 % (11.8-14.3)
[2017-10-30 04:07] LABS: Basophils % (manual) 0 (0.0-2.0); Blast Cells 0; Promyelocytes % 0; Reactive Lymphocytes 0
[2017-10-30 04:14] LABS: Potassium 3.7 mmol/L (3.5-5.1)
[2017-10-30 04:17] LABS: BUN/Creatinine Ratio 34.6
[2017-10-30 04:50] LABS: Band Neutrophils % (manual) 1; Eosinophils % (manual) 1 (0-7); Lymphocytes % (manual) 15 (10.0-50.0); Metamyelocytes % 1; Monocytes % (manual) 6 (0-12); Myelocytes % 2
[2017-10-30] MEDS: hydrALAZINE HCL 25 MG TAB PO SCH ×3 (06:19→21:38)
[2017-10-30] MEDS: PIPERACILLIN-TAZOB 3.375GM 100 ML IV SCH ×4 (06:19→18:00)
[2017-10-30] MEDS: ACCU-CHEK COMFORT CURVE STRIP VI SCH ×4 (06:19→18:00)
[2017-10-30] MEDS: INSULIN NPH Isophane (HUMAN) 1unit/0.01ml Susp(100units/ml) SC SCH ×2 (06:20→18:00)
[2017-10-30] MEDS: InsuLIN REG 1unit/0.01ml Soln (100units/ml) SC SCH ×4 (06:20→18:00)
[2017-10-30] MEDS: PANTOPRAZOLE 40 MG/10 ML VIAL IV SCH (10:03)
[2017-10-30] MEDS: CLOPIDOGREL BISULFATE 75 MG TAB PO SCH (10:04)
[2017-10-30] MEDS: ASPirin 81 mg TAB PO SCH (10:04)
[2017-10-30] MEDS: SODIUM CHLOR 0.9% PF (SALINE LOCK) 10ML VIAL/SYR IV SCH ×2 (10:04→21:38)
[2017-10-30] MEDS: METOPROLOL TARTRATE 25 MG TAB PO SCH ×2 (10:04→20:17)
[2017-10-30] MEDS: FLUCONAZOLE 200MG/100ML 100 ML IV SCH (10:05)
[2017-10-30] MEDS: FAMOTIDINE (10MG/ML) 2ML VL IV SCH (10:05)
[2017-10-30] MEDS: fentaNYL Drip 2500mCg/250mlNS 250 ML IV SCH (11:52)
[2017-10-30] MEDS: MIDAZOLAM DRIP 50 mg/50mL 50 ML IV SCH (11:53)
[2017-10-30] MEDS ORDERED: MIDAZOLAM HCL 1MG/1ML-2 ML VIAL IV PRN (15:00)
[2017-10-30] MEDS ORDERED: fentaNYL CITRATE 100 MCG/2 ML VL IV ONE (16:00)
[2017-10-30] MEDS ORDERED: fentaNYL CITRATE 100 MCG/2 ML VL IV PRN (18:00)
[2017-10-30] MEDS: Glucerna 1.2 Cal 1Liter BOTTLE GT SCH (20:20)
[2017-10-30] MEDS ORDERED: NICARDIPINE 25MG/250ML BAG KIT 250 ML IV ONE (22:33)
[2017-10-30] MEDS: NICARDIPINE 25MG/250ML BAG KIT 250 ML IV SCH (22:46)
[2017-10-31] VITALS (105 sets, daily range): BP systolic 115–162; BP diastolic 39–67
[2017-10-31] MEDS: ALBUTEROL SULF 2.5 MG/0.5ML(0.5%) NEB SOLN NEB SCH ×4 (00:15→18:20)
[2017-10-31] MEDS: IPRATROPIUM BROM 0.5 MG/2.5ML INH SOL NEB SCH ×4 (00:15→18:20)
[2017-10-31] MEDS: ACCU-CHEK COMFORT CURVE STRIP VI SCH ×5 (00:18→23:52)
[2017-10-31] MEDS: PIPERACILLIN-TAZOB 3.375GM 100 ML IV SCH ×5 (00:18→23:52)
[2017-10-31] MEDS: InsuLIN REG 1unit/0.01ml Soln (100units/ml) SC SCH ×5 (00:21→23:55)
[2017-10-31] MEDS: NICARDIPINE 25MG/250ML BAG KIT 250 ML IV SCH ×7 (02:01→23:02)
[2017-10-31] MEDS: hydrALAZINE HCL 25 MG TAB PO SCH ×3 (06:13→22:35)
[2017-10-31] MEDS: INSULIN NPH Isophane (HUMAN) 1unit/0.01ml Susp(100units/ml) SC SCH ×2 (06:44→17:57)
[2017-10-31 07:06] LABS: Hemoglobin 9.7 g/dL (12.2-16.2)
[2017-10-31 07:08] LABS: Hematocrit 30.9 % (36.0-46.0); Mean Corpuscular Hemoglobin 25.9 pg (28.0-32.0); Mean Corpuscular Hgb Conc. 31.3 g/dL (32.0-36.0); Mean Corpuscular Volume 82.9 fL (80.0-100.0); Platelet Count (auto) 415 10^3/uL (140-450); Red Blood Cells 3.72 10^6/uL (4.0-5.20); White Blood Cell 25.4 10^3/uL (4.4-10.8)
[2017-10-31 07:27] LABS: BUN/Creatinine Ratio 29.1; Calcium 9.1 mg/dL (8.5-10.1)
[2017-10-31 07:35] LABS: Band Neutrophils % (manual) 0; Basophils % (manual) 0 (0.0-2.0); Blast Cells 0; Eosinophils % (manual) 0 (0-7); Promyelocytes % 0; Reactive Lymphocytes 0
[2017-10-31] MEDS: PROPOFOL 100 ML IV SCH (09:23)
[2017-10-31 10:04] LABS: Lymphocytes % (manual) 8 (10.0-50.0); Metamyelocytes % 1; Monocytes % (manual) 5 (0-12); Myelocytes % 2
[2017-10-31] MEDS: PANTOPRAZOLE 40 MG/10 ML VIAL IV SCH (10:19)
[2017-10-31] MEDS: CLOPIDOGREL BISULFATE 75 MG TAB PO SCH (10:20)
[2017-10-31] MEDS: FAMOTIDINE (10MG/ML) 2ML VL IV SCH (10:20)
[2017-10-31] MEDS: METOPROLOL TARTRATE 25 MG TAB PO SCH ×2 (10:20→22:35)
[2017-10-31] MEDS: ASPirin 81 mg TAB PO SCH (10:20)
[2017-10-31] MEDS: FLUCONAZOLE 200MG/100ML 100 ML IV SCH (10:20)
[2017-10-31] MEDS: SODIUM CHLOR 0.9% PF (SALINE LOCK) 10ML VIAL/SYR IV SCH ×2 (10:21→22:34)
[2017-10-31] MEDS ORDERED: POTASSIUM CHL 20MEQ/100ML 100 ML IV ONE (10:45)
[2017-11-01] VITALS (104 sets, daily range): BP systolic 126–153; BP diastolic 39–96
[2017-11-01] MEDS: IPRATROPIUM BROM 0.5 MG/2.5ML INH SOL NEB SCH ×4 (00:28→18:32)
[2017-11-01] MEDS: ALBUTEROL SULF 2.5 MG/0.5ML(0.5%) NEB SOLN NEB SCH ×4 (00:28→18:32)
[2017-11-01] MEDS: NICARDIPINE 25MG/250ML BAG KIT 250 ML IV SCH (04:10)
[2017-11-01] MEDS: InsuLIN REG 1unit/0.01ml Soln (100units/ml) SC SCH ×3 (06:00→18:07)
[2017-11-01] MEDS: PIPERACILLIN-TAZOB 3.375GM 100 ML IV SCH ×3 (06:12→18:01)
[2017-11-01] MEDS: hydrALAZINE HCL 25 MG TAB PO SCH ×3 (06:13→22:30)
[2017-11-01] MEDS: INSULIN NPH Isophane (HUMAN) 1unit/0.01ml Susp(100units/ml) SC SCH (06:13)
[2017-11-01] MEDS: ACCU-CHEK COMFORT CURVE STRIP VI SCH ×3 (06:13→18:01)
[2017-11-01 06:59] LABS: Hemoglobin 9.2 g/dL (12.2-16.2)
[2017-11-01 07:04] LABS: Hematocrit 29.9 % (36.0-46.0); Mean Corpuscular Hemoglobin 25.6 pg (28.0-32.0); Mean Corpuscular Hgb Conc. 30.8 g/dL (32.0-36.0); Mean Corpuscular Volume 83.1 fL (80.0-100.0); Platelet Count (auto) 379 10^3/uL (140-450)
[2017-11-01 07:08] LABS: Calcium 8.9 mg/dL (8.5-10.1)
[2017-11-01 07:13] LABS: Potassium 2.8 mmol/L (3.5-5.1)
[2017-11-01 07:45] LABS: Red Cell Distribution Width 20.1 % (11.8-14.3)
[2017-11-01 07:46] LABS: White Blood Cell 34.5 10^3/uL (4.4-10.8)
[2017-11-01 07:47] LABS: Band Neutrophils % (manual) 0; Basophils % (manual) 0 (0.0-2.0); Blast Cells 0; Eosinophils % (manual) 0 (0-7); Metamyelocytes % 0; Myelocytes % 0; Promyelocytes % 0; Reactive Lymphocytes 0
[2017-11-01 08:10] LABS: Lymphocytes % (manual) 9 (10.0-50.0); Monocytes % (manual) 5 (0-12)
[2017-11-01 08:10] LABS: Hemoglobin 8.6 g/dL (12.2-16.2)
[2017-11-01 08:11] LABS: Hematocrit 28.2 % (36.0-46.0); Mean Corpuscular Hemoglobin 25.2 pg (28.0-32.0); Mean Corpuscular Hgb Conc. 30.3 g/dL (32.0-36.0); Platelet Count (auto) 356 10^3/uL (140-450)
[2017-11-01 08:35] LABS: Red Cell Distribution Width 20.6 % (11.8-14.3)
[2017-11-01 08:36] LABS: Band Neutrophils % (manual) 0; Basophils % (manual) 0 (0.0-2.0); Blast Cells 0; Metamyelocytes % 0; Myelocytes % 0; Promyelocytes % 0; Reactive Lymphocytes 0; White Blood Cell 32.6 10^3/uL (4.4-10.8)
[2017-11-01] MEDS ORDERED: POTASSIUM CHL 20MEQ/100ML 200 ML IV ONE (08:43)
[2017-11-01] MEDS ORDERED: POTASSIUM CHL 20MEQ/100ML 100 ML IV ONE (08:45)
[2017-11-01 09:04] LABS: Eosinophils % (manual) 2 (0-7); Lymphocytes % (manual) 8 (10.0-50.0); Monocytes % (manual) 7 (0-12)
[2017-11-01] MEDS: PROPOFOL 100 ML IV SCH (09:23)
[2017-11-01] MEDS: PANTOPRAZOLE 40 MG/10 ML VIAL IV SCH (10:13)
[2017-11-01] MEDS: FLUCONAZOLE 200MG/100ML 100 ML IV SCH (10:13)
[2017-11-01] MEDS: SODIUM CHLOR 0.9% PF (SALINE LOCK) 10ML VIAL/SYR IV SCH ×2 (10:13→22:31)
[2017-11-01] MEDS: METOPROLOL TARTRATE 25 MG TAB PO SCH ×2 (10:17→22:30)
[2017-11-01] MEDS: CLOPIDOGREL BISULFATE 75 MG TAB PO SCH (10:17)
[2017-11-01] MEDS: FAMOTIDINE (10MG/ML) 2ML VL IV SCH (10:17)
[2017-11-01] MEDS: ASPirin 81 mg TAB PO SCH (10:17)
[2017-11-01] MEDS ORDERED: MICAFUNGIN SODIUM 100 MG in SODIUM CHL 0.9% 100 ML IV ONE (12:15)
[2017-11-01] MEDS ORDERED: VANCOMYCIN PER PHARMACY 0 MG IV SCH (12:15)
[2017-11-01] MEDS ORDERED: DEXTROSE (50%) 50ML SYRG IV PRN (12:15)
[2017-11-01] MEDS ORDERED: MORPHINE SULF INJ 2 MG/ML SYRINGE 1ML IV PRN (12:15)
[2017-11-01] MEDS ORDERED: POTASSIUM EFFERVESENT TAB 25 MEQ GT ONE (12:15)
[2017-11-01] MEDS: METOCLOPRAMIDE HCL 5MG/ml INJ 2ml VIAL IV SCH ×2 (14:29→22:29)
[2017-11-01] MEDS: VANCOMYCIN 1GM/250ML 250 ML IV SCH (15:04)
[2017-11-01 20:22] LABS: BUN/Creatinine Ratio 22.1; Calcium 9.1 mg/dL (8.5-10.1); Potassium 3.9 mmol/L (3.5-5.1)
[2017-11-02] VITALS (105 sets, daily range): BP systolic 110–167; BP diastolic 42–100
[2017-11-02] MEDS: IPRATROPIUM BROM 0.5 MG/2.5ML INH SOL NEB SCH ×4 (00:33→18:13)
[2017-11-02] MEDS: ALBUTEROL SULF 2.5 MG/0.5ML(0.5%) NEB SOLN NEB SCH ×4 (00:33→18:12)
[2017-11-02] MEDS: ACCU-CHEK COMFORT CURVE STRIP VI SCH ×3 (01:02→18:00)
[2017-11-02] MEDS: InsuLIN REG 1unit/0.01ml Soln (100units/ml) SC SCH ×4 (01:05→18:16)
[2017-11-02] MEDS: PIPERACILLIN-TAZOB 3.375GM 100 ML IV SCH ×4 (01:06→18:48)
[2017-11-02 03:48] LABS: Basophils # (auto) 0 uL; Eosinophils # (auto) 0.2 uL; Hemoglobin 8.4 g/dL (12.2-16.2); White Blood Cell 28.1 10^3/uL (4.4-10.8)
[2017-11-02 03:50] LABS: Eosinophils % (auto) 0.7 % (0.0-7.0); Hematocrit 27.4 % (36.0-46.0); Lymphocytes # (auto) 2.8 uL; Lymphocytes % (auto) 9.8 % (10.0-50.0); Mean Corpuscular Hemoglobin 25.2 pg (28.0-32.0); Mean Corpuscular Hgb Conc. 30.5 g/dL (32.0-36.0); Mean Corpuscular Volume 82.6 fL (80.0-100.0); Monocytes # (auto) 1.5 uL; Monocytes % (auto) 5.3 % (0.0-12.0); Neutrophils # (auto) 23.7 uL; Neutrophils % (auto) 84.2 % (37.0-80.0); Platelet Count (auto) 338 10^3/uL (140-450); Red Blood Cells 3.31 10^6/uL (4.0-5.20)
[2017-11-02 03:55] LABS: Red Cell Distribution Width 21.1 % (11.8-14.3)
[2017-11-02 04:12] LABS: Albumin 2.2 g/dL (3.4-5.0); Calcium 8.8 mg/dL (8.5-10.1); Potassium 3.4 mmol/L (3.5-5.1)
[2017-11-02 04:14] LABS: BUN/Creatinine Ratio 19.1
[2017-11-02 04:17] LABS: Total Protein 6.4 g/dL (6.4-8.2)
[2017-11-02] MEDS: METOCLOPRAMIDE HCL 5MG/ml INJ 2ml VIAL IV SCH ×3 (06:45→21:33)
[2017-11-02] MEDS: hydrALAZINE HCL 25 MG TAB PO SCH ×3 (06:49→21:33)
[2017-11-02] MEDS: CLOPIDOGREL BISULFATE 75 MG TAB PO SCH (09:35)
[2017-11-02] MEDS: PANTOPRAZOLE 40 MG/10 ML VIAL IV SCH (09:35)
[2017-11-02] MEDS: ASPirin 81 mg TAB PO SCH (09:35)
[2017-11-02] MEDS: MICAFUNGIN SODIUM 100 MG in SODIUM CHL 0.9% 100 ML IV SCH (09:37)
[2017-11-02] MEDS: SODIUM CHLOR 0.9% PF (SALINE LOCK) 10ML VIAL/SYR IV SCH ×2 (09:47→21:34)
[2017-11-02] MEDS: METOPROLOL TARTRATE 25 MG TAB PO SCH ×2 (11:32→21:33)
[2017-11-02] MEDS: VANCOMYCIN 1GM/250ML 250 ML IV SCH (15:03)
[2017-11-02] MEDS ORDERED: FUROSEMIDE 40 MG/4 ML VIAL ONE (16:06)
[2017-11-02] MEDS ORDERED: PROPOFOL 100 ML IV SCH (16:07)
[2017-11-02] MEDS ORDERED: POTASSIUM EFFERVESENT TAB 25 MEQ GT ONE (16:15)
[2017-11-02] MEDS ORDERED: FUROSEMIDE 40 MG/4 ML VIAL IV ONE (16:15)
[2017-11-02] MEDS ORDERED: ONDANSETRON HCL 4 MG/2 ML VIAL IV PRN (16:15)
[2017-11-02] MEDS ORDERED: NITROGLYCERIN 0.4 MG SL TAB SL PRN (16:15)
[2017-11-03] VITALS (70 sets, daily range): BP systolic 145–177; BP diastolic 50–74
[2017-11-03] MEDS: ACCU-CHEK COMFORT CURVE STRIP VI SCH ×4 (00:24→17:39)
[2017-11-03] MEDS: PIPERACILLIN-TAZOB 3.375GM 100 ML IV SCH ×4 (00:29→17:39)
[2017-11-03] MEDS: InsuLIN REG 1unit/0.01ml Soln (100units/ml) SC SCH ×4 (00:30→17:41)
[2017-11-03] MEDS: ALBUTEROL SULF 2.5 MG/0.5ML(0.5%) NEB SOLN NEB SCH ×4 (00:32→18:20)
[2017-11-03] MEDS: IPRATROPIUM BROM 0.5 MG/2.5ML INH SOL NEB SCH ×4 (00:32→18:20)
[2017-11-03 04:38] LABS: Calcium 8.7 mg/dL (8.5-10.1); Potassium 3.3 mmol/L (3.5-5.1)
[2017-11-03 04:41] LABS: BUN/Creatinine Ratio 14.9
[2017-11-03 05:12] LABS: Basophils # (auto) 0.1 uL; Eosinophils # (auto) 0.1 uL; Lymphocytes # (auto) 2.6 uL
[2017-11-03 05:14] LABS: Basophils % (auto) 0.5 % (0.0-2.0); Eosinophils % (auto) 0.4 % (0.0-7.0); Hemoglobin 8.6 g/dL (12.2-16.2); Lymphocytes % (auto) 10.5 % (10.0-50.0); Mean Corpuscular Hemoglobin 26.4 pg (28.0-32.0); Mean Corpuscular Hgb Conc. 31.8 g/dL (32.0-36.0); Mean Corpuscular Volume 82.9 fL (80.0-100.0); Monocytes # (auto) 1.2 uL; Neutrophils # (auto) 20.6 uL; Neutrophils % (auto) 83.6 % (37.0-80.0); Platelet Count (auto) 357 10^3/uL (140-450); Red Blood Cells 3.26 10^6/uL (4.0-5.20); White Blood Cell 24.6 10^3/uL (4.4-10.8)
[2017-11-03 05:16] LABS: Red Cell Distribution Width 20.7 % (11.8-14.3)
[2017-11-03] MEDS: METOCLOPRAMIDE HCL 5MG/ml INJ 2ml VIAL IV SCH ×3 (05:53→21:59)
[2017-11-03] MEDS: hydrALAZINE HCL 25 MG TAB PO SCH ×3 (05:55→22:00)
[2017-11-03] MEDS: SODIUM CHLOR 0.9% PF (SALINE LOCK) 10ML VIAL/SYR IV SCH ×2 (10:00→22:00)
[2017-11-03] MEDS ORDERED: MIDAZOLAM HCL 5 MG/ML-1ML VIAL ONE (10:09)
[2017-11-03] MEDS ORDERED: LIDOCAINE 1% (LOCAL ANESTH.) PF 5ml SDV ONE (10:10)
[2017-11-03] MEDS ORDERED: MIDAZOLAM HCL 5 MG/ML-1ML VIAL IM ONE (10:20)
[2017-11-03] MEDS: CLOPIDOGREL BISULFATE 75 MG TAB PO SCH (11:05)
[2017-11-03] MEDS: PANTOPRAZOLE 40 MG/10 ML VIAL IV SCH (11:05)
[2017-11-03] MEDS: METOPROLOL TARTRATE 25 MG TAB PO SCH ×2 (11:05→22:00)
[2017-11-03] MEDS: ASPirin 81 mg TAB PO SCH (11:05)
[2017-11-03] MEDS ORDERED: POTASSIUM EFFERVESENT TAB 25 MEQ PO ONE (11:15)
[2017-11-03] MEDS: MICAFUNGIN SODIUM 100 MG in SODIUM CHL 0.9% 100 ML IV SCH (11:17)
[2017-11-03 12:06] LABS: CSF White Blood Cells 0.55 CUMM (0-5)
[2017-11-03] MEDS: hydrALAZINE HCL 20 MG/ML VL IV PRN (12:51)
[2017-11-03] MEDS: VANCOMYCIN 1GM/250ML 250 ML IV SCH (15:03)
[2017-11-04] VITALS (83 sets, daily range): BP systolic 131–177; BP diastolic 45–121
[2017-11-04] MEDS: ALBUTEROL SULF 2.5 MG/0.5ML(0.5%) NEB SOLN NEB SCH ×4 (00:15→18:30)
[2017-11-04] MEDS: IPRATROPIUM BROM 0.5 MG/2.5ML INH SOL NEB SCH ×4 (00:15→18:30)
[2017-11-04] MEDS: MORPHINE SULF INJ 2 MG/ML SYRINGE 1ML IV PRN (01:56)
[2017-11-04 04:25] LABS: Basophils # (auto) 0 uL; Basophils % (auto) 0.3 % (0.0-2.0); Eosinophils # (auto) 0.2 uL; Eosinophils % (auto) 1.6 % (0.0-7.0); Lymphocytes # (auto) 1.8 uL; Mean Corpuscular Volume 82.8 fL (80.0-100.0); Monocytes # (auto) 0.7 uL
[2017-11-04 04:27] LABS: Hematocrit 23.3 % (36.0-46.0); Hemoglobin 7.5 g/dL (12.2-16.2); Lymphocytes % (auto) 12.8 % (10.0-50.0); Mean Corpuscular Hemoglobin 26.6 pg (28.0-32.0); Mean Corpuscular Hgb Conc. 32.2 g/dL (32.0-36.0); Monocytes % (auto) 4.8 % (0.0-12.0); Neutrophils # (auto) 11.6 uL; Neutrophils % (auto) 80.5 % (37.0-80.0); Nucleated Red Blood Cells % 0.1 %; Platelet Count (auto) 301 10^3/uL (140-450); Red Blood Cells 2.81 10^6/uL (4.0-5.20); White Blood Cell 14.3 10^3/uL (4.4-10.8)
[2017-11-04 04:31] LABS: Red Cell Distribution Width 20.4 % (11.8-14.3)
[2017-11-04 04:40] LABS: Albumin 2.1 g/dL (3.4-5.0); BUN/Creatinine Ratio 15.2; Bilirubin, Total 0.8 mg/dL (0.2-1.0); Calcium 8.7 mg/dL (8.5-10.1); Magnesium 2.5 mg/dL (1.6-2.6); Total Protein 6.3 g/dL (6.4-8.2)
[2017-11-04] MEDS: METOCLOPRAMIDE HCL 5MG/ml INJ 2ml VIAL IV SCH ×3 (05:42→22:00)
[2017-11-04] MEDS: PIPERACILLIN-TAZOB 3.375GM 100 ML IV SCH ×4 (05:42→17:46)
[2017-11-04] MEDS: hydrALAZINE HCL 25 MG TAB PO SCH ×3 (05:43→22:20)
[2017-11-04] MEDS: InsuLIN REG 1unit/0.01ml Soln (100units/ml) SC SCH ×4 (05:45→17:46)
[2017-11-04] MEDS: ACCU-CHEK COMFORT CURVE STRIP VI SCH ×4 (05:45→17:46)
[2017-11-04] MEDS: POTASSIUM CHL 20MEQ/100ML 100 ML IV SCH ×2 (06:30→08:31)
[2017-11-04] MEDS: PANTOPRAZOLE 40 MG/10 ML VIAL IV SCH (10:14)
[2017-11-04] MEDS: ASPirin 81 mg TAB PO SCH (10:14)
[2017-11-04] MEDS: METOPROLOL TARTRATE 25 MG TAB PO SCH (10:14)
[2017-11-04] MEDS: CLOPIDOGREL BISULFATE 75 MG TAB PO SCH (10:14)
[2017-11-04] MEDS: MICAFUNGIN SODIUM 100 MG in SODIUM CHL 0.9% 100 ML IV SCH (10:14)
[2017-11-04] MEDS: SODIUM CHLOR 0.9% PF (SALINE LOCK) 10ML VIAL/SYR IV SCH ×2 (10:15→22:05)
[2017-11-04] MEDS: VANCOMYCIN 1GM/250ML 250 ML IV SCH (16:56)
[2017-11-04] MEDS: Glucerna 1.2 Cal 1Liter BOTTLE GT SCH (17:35)
[2017-11-04] MEDS: hydrALAZINE HCL 20 MG/ML VL IV PRN (17:46)
[2017-11-05] VITALS (92 sets, daily range): BP systolic 156–192; BP diastolic 51–102
[2017-11-05] MEDS: IPRATROPIUM BROM 0.5 MG/2.5ML INH SOL NEB SCH ×4 (00:07→19:16)
[2017-11-05] MEDS: ALBUTEROL SULF 2.5 MG/0.5ML(0.5%) NEB SOLN NEB SCH ×4 (00:08→19:16)
[2017-11-05] MEDS: InsuLIN REG 1unit/0.01ml Soln (100units/ml) SC SCH ×4 (00:39→18:10)
[2017-11-05] MEDS: ACCU-CHEK COMFORT CURVE STRIP VI SCH ×4 (00:39→18:09)
[2017-11-05] MEDS: METOPROLOL TARTRATE 25 MG TAB PO SCH ×3 (00:50→22:23)
[2017-11-05 03:52] LABS: Basophils # (auto) 0.1 uL; Eosinophils # (auto) 0.1 uL; Hemoglobin 7.8 g/dL (12.2-16.2); Mean Corpuscular Volume 82.8 fL (80.0-100.0); Monocytes # (auto) 0.7 uL
[2017-11-05 03:55] LABS: Basophils % (auto) 0.6 % (0.0-2.0); Eosinophils % (auto) 0.5 % (0.0-7.0); Hematocrit 25.3 % (36.0-46.0); Lymphocytes # (auto) 2.4 uL; Lymphocytes % (auto) 13.2 % (10.0-50.0); Mean Corpuscular Hemoglobin 25.6 pg (28.0-32.0); Mean Corpuscular Hgb Conc. 30.9 g/dL (32.0-36.0); Monocytes % (auto) 4.1 % (0.0-12.0); Neutrophils # (auto) 14.8 uL; Neutrophils % (auto) 81.6 % (37.0-80.0); Platelet Count (auto) 337 10^3/uL (140-450); Red Blood Cells 3.06 10^6/uL (4.0-5.20); White Blood Cell 18.1 10^3/uL (4.4-10.8)
[2017-11-05 04:04] LABS: Red Cell Distribution Width 20.1 % (11.8-14.3)
[2017-11-05 04:18] LABS: BUN/Creatinine Ratio 13.9; Calcium 8.9 mg/dL (8.5-10.1); Potassium 3.6 mmol/L (3.5-5.1)
[2017-11-05] MEDS: hydrALAZINE HCL 25 MG TAB PO SCH ×3 (06:07→22:22)
[2017-11-05] MEDS: METOCLOPRAMIDE HCL 5MG/ml INJ 2ml VIAL IV SCH (06:07)
[2017-11-05] MEDS: PIPERACILLIN-TAZOB 3.375GM 100 ML IV SCH ×4 (06:07→18:10)
[2017-11-05] MEDS: SODIUM CHLOR 0.9% PF (SALINE LOCK) 10ML VIAL/SYR IV SCH ×2 (10:36→13:03)
[2017-11-05] MEDS: PANTOPRAZOLE 40 MG/10 ML VIAL IV SCH (10:36)
[2017-11-05] MEDS: CLOPIDOGREL BISULFATE 75 MG TAB PO SCH (10:37)
[2017-11-05] MEDS: ASPirin 81 mg TAB PO SCH (10:37)
[2017-11-05] MEDS: MICAFUNGIN SODIUM 100 MG in SODIUM CHL 0.9% 100 ML IV SCH (10:37)
[2017-11-05] MEDS: VANCOMYCIN 1GM/250ML 250 ML IV SCH (10:37)
[2017-11-05] MEDS ORDERED: POTASSIUM EFFERVESENT TAB 25 MEQ PO ONE (11:30)
[2017-11-05] MEDS ORDERED: ENOXAPARIN SOD 40 MG/0.4 ML SYRINGE SC ONE (11:30)
[2017-11-05] MEDS ORDERED: FUROSEMIDE 40 MG/4 ML VIAL IV ONE (11:30)
[2017-11-05] MEDS: hydrALAZINE HCL 20 MG/ML VL IV PRN (16:14)
[2017-11-05] MEDS: MORPHINE SULF INJ 2 MG/ML SYRINGE 1ML IV PRN (22:29)
[2017-11-06] VITALS (78 sets, daily range): BP systolic 140–186; BP diastolic 52–93
[2017-11-06] MEDS: IPRATROPIUM BROM 0.5 MG/2.5ML INH SOL NEB SCH ×4 (00:11→18:22)
[2017-11-06] MEDS: ALBUTEROL SULF 2.5 MG/0.5ML(0.5%) NEB SOLN NEB SCH ×4 (00:11→18:22)
[2017-11-06] MEDS: hydrALAZINE HCL 25 MG TAB PO SCH ×4 (06:00→22:00)
[2017-11-06] MEDS: PIPERACILLIN-TAZOB 3.375GM 100 ML IV SCH ×3 (06:00→17:57)
[2017-11-06] MEDS: ACCU-CHEK COMFORT CURVE STRIP VI SCH ×5 (06:59→23:27)
[2017-11-06] MEDS: InsuLIN REG 1unit/0.01ml Soln (100units/ml) SC SCH ×5 (06:59→23:26)
[2017-11-06] MEDS: VANCOMYCIN 1GM/250ML 250 ML IV SCH (07:00)
[2017-11-06 07:28] LABS: Basophils # (auto) 0.1 uL; Basophils % (auto) 0.4 % (0.0-2.0); Eosinophils # (auto) 0.1 uL; Lymphocytes # (auto) 1.6 uL; Nucleated Red Blood Cells % 0.1 %; Platelet Count (auto) 326 10^3/uL (140-450)
[2017-11-06 07:29] LABS: Eosinophils % (auto) 0.7 % (0.0-7.0); Hematocrit 25.9 % (36.0-46.0); Hemoglobin 8.1 g/dL (12.2-16.2); Mean Corpuscular Hemoglobin 26.2 pg (28.0-32.0); Mean Corpuscular Hgb Conc. 31.4 g/dL (32.0-36.0); Mean Corpuscular Volume 83.5 fL (80.0-100.0); Monocytes # (auto) 0.7 uL; Monocytes % (auto) 4.8 % (0.0-12.0); Neutrophils # (auto) 12.2 uL; Neutrophils % (auto) 83.1 % (37.0-80.0); White Blood Cell 14.7 10^3/uL (4.4-10.8)
[2017-11-06 07:34] LABS: Red Cell Distribution Width 20.8 % (11.8-14.3)
[2017-11-06 07:50] LABS: Calcium 9.4 mg/dL (8.5-10.1); Potassium 3.2 mmol/L (3.5-5.1)
[2017-11-06] MEDS: ASPirin 81 mg TAB PO SCH (10:00)
[2017-11-06] MEDS: ENOXAPARIN SOD 40 MG/0.4 ML SYRINGE SC SCH (10:00)
[2017-11-06] MEDS: FUROSEMIDE 40 MG/4 ML VIAL IV SCH (10:28)
[2017-11-06] MEDS: PANTOPRAZOLE 40 MG/10 ML VIAL IV SCH (10:28)
[2017-11-06] MEDS: SODIUM CHLOR 0.9% PF (SALINE LOCK) 10ML VIAL/SYR IV SCH ×2 (10:29→22:00)
[2017-11-06] MEDS: METOPROLOL TARTRATE 25 MG TAB PO SCH ×2 (10:29→22:00)
[2017-11-06] MEDS: CLOPIDOGREL BISULFATE 75 MG TAB PO SCH (10:29)
[2017-11-06] MEDS: POTASSIUM EFFERVESENT TAB 25 MEQ PO SCH (10:29)
[2017-11-06] MEDS: MICAFUNGIN SODIUM 100 MG in SODIUM CHL 0.9% 100 ML IV SCH (10:30)
[2017-11-06] MEDS ORDERED: FUROSEMIDE 40 MG/4 ML VIAL ONE (12:18)
[2017-11-06] MEDS ORDERED: LORazepam 2MG/ML-1ML VIAL ONE (12:26)
[2017-11-06] MEDS ORDERED: LORazepam 2MG/ML-1ML VIAL IV ONE ×2 (12:30→13:10)
[2017-11-06] MEDS ORDERED: NITROGLYCERIN 2% OINT 1GM PKG TD ONE (12:30)
[2017-11-06] MEDS ORDERED: POTASSIUM EFFERVESENT TAB 25 MEQ GT ONE (12:30)
[2017-11-06] MEDS ORDERED: FUROSEMIDE 40 MG/4 ML VIAL IV ONE (12:30)
[2017-11-06] MEDS ORDERED: MIDAZOLAM HCL 1MG/1ML-2 ML VIAL IV PRN (12:30)
[2017-11-06] MEDS: hydrALAZINE HCL 20 MG/ML VL IV PRN (13:11)
[2017-11-06] MEDS ORDERED: ENALAPRILAT 1.25 MG/ML-1ML VIAL IV ONE (14:22)
[2017-11-06] MEDS ORDERED: ETOMIDATE (2MG/ML) 20ML VIAL IV ONE ×2 (17:08→17:15)
[2017-11-06] MEDS ORDERED: fentaNYL Drip 2500mCg/250mlNS 250 ML IV SCH (17:11)
[2017-11-06] MEDS ORDERED: PROPOFOL 100 ML IV ONE (17:12)
[2017-11-06] MEDS: PROPOFOL 100 ML IV SCH (17:19)
[2017-11-06] MEDS: Glucerna 1.2 Cal 1Liter BOTTLE GT SCH (18:10)
[2017-11-06] MEDS: fentaNYL Drip 2500mCg/250mlNS 250 ML IV SCH (18:10)
[2017-11-06 22:42] LABS: BUN/Creatinine Ratio 13.6; Magnesium 2.1 mg/dL (1.6-2.6); Potassium 3.4 mmol/L (3.5-5.1)
[2017-11-07] VITALS (97 sets, daily range): BP systolic 124–185; BP diastolic 22–88
[2017-11-07] MEDS: ALBUTEROL SULF 2.5 MG/0.5ML(0.5%) NEB SOLN NEB SCH ×3 (00:12→22:21)
[2017-11-07] MEDS: IPRATROPIUM BROM 0.5 MG/2.5ML INH SOL NEB SCH ×3 (00:12→22:22)
[2017-11-07] MEDS: PIPERACILLIN-TAZOB 3.375GM 100 ML IV SCH ×5 (01:00→23:55)
[2017-11-07] MEDS: PROPOFOL 100 ML IV SCH (02:05)
[2017-11-07] MEDS: VANCOMYCIN 1GM/250ML 250 ML IV SCH (03:00)
[2017-11-07 05:08] LABS: Basophils # (auto) 0.1 uL; Eosinophils # (auto) 0.3 uL; Eosinophils % (auto) 3.1 % (0.0-7.0); Hemoglobin 7.8 g/dL (12.2-16.2); Nucleated Red Blood Cells % 0.1 %; White Blood Cell 10.9 10^3/uL (4.4-10.8)
[2017-11-07 05:09] LABS: Basophils % (auto) 0.6 % (0.0-2.0); Lymphocytes # (auto) 1.3 uL; Lymphocytes % (auto) 12.4 % (10.0-50.0); Mean Corpuscular Hemoglobin 26.9 pg (28.0-32.0); Mean Corpuscular Hgb Conc. 32.5 g/dL (32.0-36.0); Mean Corpuscular Volume 82.9 fL (80.0-100.0); Monocytes # (auto) 0.7 uL; Monocytes % (auto) 6.6 % (0.0-12.0); Neutrophils # (auto) 8.4 uL; Neutrophils % (auto) 77.3 % (37.0-80.0); Platelet Count (auto) 295 10^3/uL (140-450)
[2017-11-07 05:15] LABS: Red Cell Distribution Width 20.8 % (11.8-14.3)
[2017-11-07 05:29] LABS: BUN/Creatinine Ratio 13.6; Calcium 8.6 mg/dL (8.5-10.1); Potassium 3.2 mmol/L (3.5-5.1)
[2017-11-07] MEDS: hydrALAZINE HCL 25 MG TAB PO SCH ×2 (06:00→18:17)
[2017-11-07] MEDS: ACCU-CHEK COMFORT CURVE STRIP VI SCH ×3 (06:12→18:17)
[2017-11-07] MEDS: InsuLIN REG 1unit/0.01ml Soln (100units/ml) SC SCH ×3 (06:12→18:20)
[2017-11-07] MEDS: METOPROLOL TARTRATE 25 MG TAB PO SCH ×2 (10:01→23:00)
[2017-11-07] MEDS: CLOPIDOGREL BISULFATE 75 MG TAB PO SCH (10:01)
[2017-11-07] MEDS: ASPirin 81 mg TAB PO SCH (10:01)
[2017-11-07] MEDS: ENOXAPARIN SOD 40 MG/0.4 ML SYRINGE SC SCH (10:02)
[2017-11-07] MEDS: PANTOPRAZOLE 40 MG/10 ML VIAL IV SCH (10:02)
[2017-11-07] MEDS: POTASSIUM EFFERVESENT TAB 25 MEQ PO SCH (10:02)
[2017-11-07] MEDS: FUROSEMIDE 40 MG/4 ML VIAL IV SCH (10:02)
[2017-11-07] MEDS: MICAFUNGIN SODIUM 100 MG in SODIUM CHL 0.9% 100 ML IV SCH (10:03)
[2017-11-07] MEDS: SODIUM CHLOR 0.9% PF (SALINE LOCK) 10ML VIAL/SYR IV SCH ×2 (12:30→23:00)
[2017-11-07] MEDS ORDERED: POTASSIUM EFFERVESENT TAB 25 MEQ PO ONE (13:00)
[2017-11-07] MEDS: LABETALOL HCL 5 MG/ML ML 20ML VIAL IV PRN (14:20)
[2017-11-07] MEDS: fentaNYL Drip 2500mCg/250mlNS 250 ML IV SCH ×2 (17:54→19:15)
[2017-11-07] MEDS: ISOSORBIDE DINITRATE 10 MG TAB PO SCH (18:55)
[2017-11-08] VITALS (98 sets, daily range): BP systolic 122–178; BP diastolic 36–87
[2017-11-08] MEDS: IPRATROPIUM BROM 0.5 MG/2.5ML INH SOL NEB SCH ×4 (00:18→18:05)
[2017-11-08] MEDS: ALBUTEROL SULF 2.5 MG/0.5ML(0.5%) NEB SOLN NEB SCH ×4 (00:18→18:05)
[2017-11-08] MEDS: InsuLIN REG 1unit/0.01ml Soln (100units/ml) SC SCH ×4 (00:36→17:53)
[2017-11-08] MEDS: hydrALAZINE HCL 25 MG TAB PO SCH ×5 (00:37→23:47)
[2017-11-08] MEDS: VANCOMYCIN 1GM/250ML 250 ML IV SCH ×2 (00:39→14:30)
[2017-11-08] MEDS: PROPOFOL 100 ML IV SCH (03:05)
[2017-11-08 04:03] LABS: Basophils # (auto) 0.1 uL; Eosinophils # (auto) 0.4 uL; Lymphocytes # (auto) 1.7 uL; Lymphocytes % (auto) 15.7 % (10.0-50.0); Monocytes # (auto) 0.6 uL; Neutrophils % (auto) 74.4 % (37.0-80.0)
[2017-11-08 04:06] LABS: Basophils % (auto) 0.7 % (0.0-2.0); Eosinophils % (auto) 3.9 % (0.0-7.0); Hematocrit 24.3 % (36.0-46.0); Hemoglobin 7.8 g/dL (12.2-16.2); Mean Corpuscular Hemoglobin 26.5 pg (28.0-32.0); Mean Corpuscular Hgb Conc. 31.9 g/dL (32.0-36.0); Mean Corpuscular Volume 83.1 fL (80.0-100.0); Monocytes % (auto) 5.3 % (0.0-12.0); Nucleated Red Blood Cells % 0.1 %; Platelet Count (auto) 292 10^3/uL (140-450); Red Blood Cells 2.93 10^6/uL (4.0-5.20); White Blood Cell 10.8 10^3/uL (4.4-10.8)
[2017-11-08 04:19] LABS: Red Cell Distribution Width 21.3 % (11.8-14.3)
[2017-11-08 04:20] LABS: BUN/Creatinine Ratio 11.5; Calcium 8.5 mg/dL (8.5-10.1); Potassium 3.7 mmol/L (3.5-5.1)
[2017-11-08] MEDS: ISOSORBIDE DINITRATE 10 MG TAB PO SCH ×3 (06:00→17:53)
[2017-11-08] MEDS: PIPERACILLIN-TAZOB 3.375GM 100 ML IV SCH ×4 (06:00→23:46)
[2017-11-08] MEDS: ACCU-CHEK COMFORT CURVE STRIP VI SCH ×5 (06:00→23:46)
[2017-11-08] MEDS: POTASSIUM EFFERVESENT TAB 25 MEQ PO SCH (10:00)
[2017-11-08] MEDS: ASPirin 81 mg TAB PO SCH (10:00)
[2017-11-08] MEDS: CLOPIDOGREL BISULFATE 75 MG TAB PO SCH (10:00)
[2017-11-08] MEDS: SODIUM CHLOR 0.9% PF (SALINE LOCK) 10ML VIAL/SYR IV SCH ×2 (10:00→22:01)
[2017-11-08] MEDS: METOPROLOL TARTRATE 25 MG TAB PO SCH ×2 (10:00→22:02)
[2017-11-08] MEDS: ENOXAPARIN SOD 40 MG/0.4 ML SYRINGE SC SCH (10:00)
[2017-11-08] MEDS: MICAFUNGIN SODIUM 100 MG in SODIUM CHL 0.9% 100 ML IV SCH (10:29)
[2017-11-08] MEDS: FUROSEMIDE 40 MG/4 ML VIAL IV SCH (10:29)
[2017-11-08] MEDS: PANTOPRAZOLE 40 MG/10 ML VIAL IV SCH (10:30)
[2017-11-08] MEDS: fentaNYL Drip 2500mCg/250mlNS 250 ML IV SCH ×2 (19:15→22:24)
[2017-11-09] VITALS (109 sets, daily range): BP systolic 140–180; BP diastolic 44–99
[2017-11-09] MEDS: IPRATROPIUM BROM 0.5 MG/2.5ML INH SOL NEB SCH ×4 (00:04→18:19)
[2017-11-09] MEDS: ALBUTEROL SULF 2.5 MG/0.5ML(0.5%) NEB SOLN NEB SCH ×4 (00:04→18:19)
[2017-11-09] MEDS: InsuLIN REG 1unit/0.01ml Soln (100units/ml) SC SCH ×4 (00:23→18:13)
[2017-11-09 03:59] LABS: Basophils # (auto) 0.1 uL; Eosinophils # (auto) 0.4 uL; Eosinophils % (auto) 2.9 % (0.0-7.0); Hemoglobin 8.1 g/dL (12.2-16.2); Mean Corpuscular Volume 83.4 fL (80.0-100.0); Nucleated Red Blood Cells % 0.1 %
[2017-11-09 04:00] LABS: Basophils % (auto) 0.7 % (0.0-2.0); Hematocrit 25.9 % (36.0-46.0); Lymphocytes # (auto) 2.8 uL; Lymphocytes % (auto) 21.2 % (10.0-50.0); Mean Corpuscular Hemoglobin 26.1 pg (28.0-32.0); Mean Corpuscular Hgb Conc. 31.2 g/dL (32.0-36.0); Monocytes # (auto) 0.7 uL; Monocytes % (auto) 5.5 % (0.0-12.0); Neutrophils # (auto) 9.1 uL; Neutrophils % (auto) 69.7 % (37.0-80.0); Platelet Count (auto) 331 10^3/uL (140-450)
[2017-11-09 04:03] LABS: Red Cell Distribution Width 20.9 % (11.8-14.3)
[2017-11-09 04:21] LABS: BUN/Creatinine Ratio 10.8; Calcium 8.8 mg/dL (8.5-10.1); Potassium 3.8 mmol/L (3.5-5.1)
[2017-11-09] MEDS: ACCU-CHEK COMFORT CURVE STRIP VI SCH ×3 (06:03→18:06)
[2017-11-09] MEDS: PIPERACILLIN-TAZOB 3.375GM 100 ML IV SCH ×3 (06:07→18:05)
[2017-11-09] MEDS: ISOSORBIDE DINITRATE 10 MG TAB PO SCH ×2 (06:08→18:07)
[2017-11-09] MEDS: hydrALAZINE HCL 25 MG TAB PO SCH ×2 (06:08→18:07)
[2017-11-09] MEDS: ENOXAPARIN SOD 40 MG/0.4 ML SYRINGE SC SCH (10:00)
[2017-11-09] MEDS: PANTOPRAZOLE 40 MG/10 ML VIAL IV SCH (10:59)
[2017-11-09] MEDS: POTASSIUM EFFERVESENT TAB 25 MEQ PO SCH (11:00)
[2017-11-09] MEDS: METOPROLOL TARTRATE 25 MG TAB PO SCH ×2 (11:00→21:48)
[2017-11-09] MEDS: FUROSEMIDE 40 MG/4 ML VIAL IV SCH (11:00)
[2017-11-09] MEDS: SODIUM CHLOR 0.9% PF (SALINE LOCK) 10ML VIAL/SYR IV SCH ×2 (11:00→21:49)
[2017-11-09] MEDS: VANCOMYCIN 1GM/250ML 250 ML IV SCH (11:01)
[2017-11-09] MEDS: LABETALOL HCL 5 MG/ML ML 20ML VIAL IV PRN (12:21)
[2017-11-09] MEDS ORDERED: MIDAZOLAM HCL 5 MG/ML-1ML VIAL ONE (14:04)
[2017-11-09] MEDS: MICAFUNGIN SODIUM 100 MG in SODIUM CHL 0.9% 100 ML IV SCH (15:58)
[2017-11-09] MEDS: ASPirin 81 mg TAB PO SCH (17:32)
[2017-11-09] MEDS: CLOPIDOGREL BISULFATE 75 MG TAB PO SCH (17:33)
[2017-11-10] VITALS (106 sets, daily range): BP systolic 102–181; BP diastolic 36–92
[2017-11-10] MEDS: InsuLIN REG 1unit/0.01ml Soln (100units/ml) SC SCH ×4 (00:10→17:55)
[2017-11-10] MEDS: ACCU-CHEK COMFORT CURVE STRIP VI SCH ×4 (00:10→17:55)
[2017-11-10] MEDS: IPRATROPIUM BROM 0.5 MG/2.5ML INH SOL NEB SCH ×5 (00:14→23:44)
[2017-11-10] MEDS: ALBUTEROL SULF 2.5 MG/0.5ML(0.5%) NEB SOLN NEB SCH ×5 (00:14→23:44)
[2017-11-10] MEDS: PIPERACILLIN-TAZOB 3.375GM 100 ML IV SCH ×4 (00:27→18:01)
[2017-11-10] MEDS: hydrALAZINE HCL 25 MG TAB PO SCH ×4 (00:28→18:02)
[2017-11-10 04:04] LABS: Basophils # (auto) 0.1 uL; Eosinophils # (auto) 0.2 uL; Monocytes # (auto) 0.9 uL; Nucleated Red Blood Cells % 0.1 %
[2017-11-10 04:06] LABS: Basophils % (auto) 0.4 % (0.0-2.0); Hematocrit 25.4 % (36.0-46.0); Hemoglobin 8.3 g/dL (12.2-16.2); Lymphocytes % (auto) 19.8 % (10.0-50.0); Mean Corpuscular Hemoglobin 27.3 pg (28.0-32.0); Mean Corpuscular Hgb Conc. 32.6 g/dL (32.0-36.0); Mean Corpuscular Volume 83.6 fL (80.0-100.0); Monocytes % (auto) 5.7 % (0.0-12.0); Neutrophils % (auto) 73.1 % (37.0-80.0); Platelet Count (auto) 341 10^3/uL (140-450); Red Blood Cells 3.04 10^6/uL (4.0-5.20)
[2017-11-10 04:12] LABS: Red Cell Distribution Width 21.4 % (11.8-14.3)
[2017-11-10 04:23] LABS: INR 1.09 (0.9-1.15); Prothrombin Time 11.6 sec (9.27-12.13)
[2017-11-10 04:25] LABS: BUN/Creatinine Ratio 10.4; Calcium 8.7 mg/dL (8.5-10.1); Potassium 3.5 mmol/L (3.5-5.1)
[2017-11-10] MEDS: ISOSORBIDE DINITRATE 10 MG TAB PO SCH ×3 (06:26→18:02)
[2017-11-10] MEDS: METOPROLOL TARTRATE 25 MG TAB PO SCH ×2 (10:43→22:20)
[2017-11-10] MEDS: ASPirin 81 mg TAB PO SCH (10:43)
[2017-11-10] MEDS: FUROSEMIDE 40 MG/4 ML VIAL IV SCH (10:44)
[2017-11-10] MEDS: CLOPIDOGREL BISULFATE 75 MG TAB PO SCH (10:44)
[2017-11-10] MEDS: PANTOPRAZOLE 40 MG/10 ML VIAL IV SCH (10:45)
[2017-11-10] MEDS: SODIUM CHLOR 0.9% PF (SALINE LOCK) 10ML VIAL/SYR IV SCH ×2 (10:45→22:00)
[2017-11-10] MEDS: MICAFUNGIN SODIUM 100 MG in SODIUM CHL 0.9% 100 ML IV SCH (10:46)
[2017-11-10] MEDS: ENOXAPARIN SOD 40 MG/0.4 ML SYRINGE SC SCH (10:46)
[2017-11-10] MEDS: POTASSIUM EFFERVESENT TAB 25 MEQ PO SCH (10:46)
[2017-11-10] MEDS: VANCOMYCIN 1GM/250ML 250 ML IV SCH (12:04)
[2017-11-10] MEDS ORDERED: LIDOCAINE 1% (LOCAL ANESTH.) PF 5ml SDV ID ONE (13:45)
[2017-11-10] MEDS: MIDAZOLAM DRIP 50 mg/50mL 50 ML IV SCH (18:50)
[2017-11-11] VITALS (111 sets, daily range): BP systolic 100–147; BP diastolic 38–74
[2017-11-11] MEDS: PIPERACILLIN-TAZOB 3.375GM 100 ML IV SCH ×5 (00:28→23:50)
[2017-11-11] MEDS: ACCU-CHEK COMFORT CURVE STRIP VI SCH ×5 (00:28→23:50)
[2017-11-11] MEDS: hydrALAZINE HCL 25 MG TAB PO SCH ×4 (00:31→16:53)
[2017-11-11] MEDS: fentaNYL Drip 2500mCg/250mlNS 250 ML IV SCH (02:00)
[2017-11-11] MEDS: MIDAZOLAM DRIP 50 mg/50mL 50 ML IV SCH (02:01)
[2017-11-11 04:57] LABS: Basophils # (auto) 0 uL; Eosinophils # (auto) 0.5 uL; Hemoglobin 7.1 g/dL (12.2-16.2); Mean Corpuscular Hemoglobin 26.6 pg (28.0-32.0); Mean Corpuscular Volume 83.4 fL (80.0-100.0); Monocytes # (auto) 0.7 uL
[2017-11-11 05:02] LABS: Basophils % (auto) 0.5 % (0.0-2.0); Eosinophils % (auto) 5.5 % (0.0-7.0); Hematocrit 22.1 % (36.0-46.0); Lymphocytes # (auto) 2.4 uL; Neutrophils # (auto) 5.2 uL; Nucleated Red Blood Cells % 0.1 %; Platelet Count (auto) 277 10^3/uL (140-450); Red Blood Cells 2.65 10^6/uL (4.0-5.20); White Blood Cell 8.8 10^3/uL (4.4-10.8)
[2017-11-11 05:27] LABS: BUN/Creatinine Ratio 10.9; Calcium 8.7 mg/dL (8.5-10.1); Potassium 3.1 mmol/L (3.5-5.1)
[2017-11-11] MEDS: ALBUTEROL SULF 2.5 MG/0.5ML(0.5%) NEB SOLN NEB SCH ×3 (05:49→19:19)
[2017-11-11] MEDS: IPRATROPIUM BROM 0.5 MG/2.5ML INH SOL NEB SCH ×3 (05:49→19:19)
[2017-11-11] MEDS: InsuLIN REG 1unit/0.01ml Soln (100units/ml) SC SCH ×5 (06:00→23:50)
[2017-11-11] MEDS: ISOSORBIDE DINITRATE 10 MG TAB PO SCH ×3 (06:00→16:52)
[2017-11-11 06:37] LABS: Red Cell Distribution Width 22.3 % (11.8-14.3)
[2017-11-11] MEDS: NITROGLYCERIN 50MG/250ML 250 ML IV SCH (08:22)
[2017-11-11] MEDS: POTASSIUM EFFERVESENT TAB 25 MEQ PO SCH (10:30)
[2017-11-11] MEDS: MICAFUNGIN SODIUM 100 MG in SODIUM CHL 0.9% 100 ML IV SCH (10:31)
[2017-11-11] MEDS: CLOPIDOGREL BISULFATE 75 MG TAB PO SCH (10:31)
[2017-11-11] MEDS: PANTOPRAZOLE 40 MG/10 ML VIAL IV SCH (10:31)
[2017-11-11] MEDS: ASPirin 81 mg TAB PO SCH (10:31)
[2017-11-11] MEDS: METOPROLOL TARTRATE 25 MG TAB PO SCH ×2 (10:32→21:53)
[2017-11-11] MEDS: ENOXAPARIN SOD 40 MG/0.4 ML SYRINGE SC SCH (10:32)
[2017-11-11] MEDS: SODIUM CHLOR 0.9% PF (SALINE LOCK) 10ML VIAL/SYR IV SCH ×2 (10:33→21:51)
[2017-11-11] MEDS: FUROSEMIDE 40 MG/4 ML VIAL IV SCH (10:33)
[2017-11-11] MEDS: VANCOMYCIN 1GM/250ML 250 ML IV SCH (12:41)
[2017-11-11 21:16] LABS: Hematocrit 28.7 % (36.0-46.0); Hemoglobin 9.4 g/dL (12.2-16.2)
[2017-11-12] VITALS (94 sets, daily range): BP systolic 108–175; BP diastolic 46–93
[2017-11-12] MEDS: ALBUTEROL SULF 2.5 MG/0.5ML(0.5%) NEB SOLN NEB SCH ×4 (00:41→18:00)
[2017-11-12] MEDS: IPRATROPIUM BROM 0.5 MG/2.5ML INH SOL NEB SCH ×4 (00:41→18:00)
[2017-11-12 03:54] LABS: Basophils # (auto) 0 uL; Hemoglobin 9.5 g/dL (12.2-16.2); Mean Corpuscular Hemoglobin 26.9 pg (28.0-32.0); Neutrophils # (auto) 6.1 uL; Nucleated Red Blood Cells % 0.1 %
[2017-11-12 03:57] LABS: Basophils % (auto) 0.3 % (0.0-2.0); Eosinophils # (auto) 0.6 uL; Eosinophils % (auto) 5.9 % (0.0-7.0); Hematocrit 29.6 % (36.0-46.0); Lymphocytes # (auto) 2.4 uL; Lymphocytes % (auto) 24.3 % (10.0-50.0); Mean Corpuscular Hgb Conc. 32.2 g/dL (32.0-36.0); Mean Corpuscular Volume 83.7 fL (80.0-100.0); Monocytes # (auto) 0.6 uL; Monocytes % (auto) 6.1 % (0.0-12.0); Neutrophils % (auto) 63.4 % (37.0-80.0); Platelet Count (auto) 335 10^3/uL (140-450); Red Blood Cells 3.54 10^6/uL (4.0-5.20); White Blood Cell 9.7 10^3/uL (4.4-10.8)
[2017-11-12 04:09] LABS: Red Cell Distribution Width 21.6 % (11.8-14.3)
[2017-11-12 04:10] LABS: Albumin 2.1 g/dL (3.4-5.0); BUN/Creatinine Ratio 10.8; Bilirubin, Total 0.9 mg/dL (0.2-1.0); Calcium 8.7 mg/dL (8.5-10.1); Potassium 3.5 mmol/L (3.5-5.1); Total Protein 6.7 g/dL (6.4-8.2)
[2017-11-12] MEDS: PIPERACILLIN-TAZOB 3.375GM 100 ML IV SCH ×3 (06:00→22:07)
[2017-11-12] MEDS: hydrALAZINE HCL 25 MG TAB PO SCH ×4 (06:00→18:10)
[2017-11-12] MEDS: ISOSORBIDE DINITRATE 10 MG TAB PO SCH ×3 (06:00→18:20)
[2017-11-12] MEDS: ACCU-CHEK COMFORT CURVE STRIP VI SCH ×3 (06:14→18:10)
[2017-11-12] MEDS: InsuLIN REG 1unit/0.01ml Soln (100units/ml) SC SCH ×3 (06:14→18:00)
[2017-11-12] MEDS: METOPROLOL TARTRATE 25 MG TAB PO SCH ×3 (10:00→22:07)
[2017-11-12] MEDS: MICAFUNGIN SODIUM 100 MG in SODIUM CHL 0.9% 100 ML IV SCH (10:00)
[2017-11-12] MEDS: SODIUM CHLOR 0.9% PF (SALINE LOCK) 10ML VIAL/SYR IV SCH ×2 (10:00→22:08)
[2017-11-12] MEDS: PANTOPRAZOLE 40 MG/10 ML VIAL IV SCH (10:00)
[2017-11-12] MEDS: FUROSEMIDE 40 MG/4 ML VIAL IV SCH (10:00)
[2017-11-12] MEDS: POTASSIUM EFFERVESENT TAB 25 MEQ PO SCH (10:01)
[2017-11-12] MEDS: ENOXAPARIN SOD 40 MG/0.4 ML SYRINGE SC SCH (10:01)
[2017-11-12] MEDS: ASPirin 81 mg TAB PO SCH (10:01)
[2017-11-12] MEDS: CLOPIDOGREL BISULFATE 75 MG TAB PO SCH (10:01)
[2017-11-12] MEDS ORDERED: VANCOMYCIN PER PHARMACY 0 MG IV SCH (11:45)
[2017-11-12] MEDS: fentaNYL Drip 2500mCg/250mlNS 250 ML IV SCH (12:04)
[2017-11-12] MEDS: NITROGLYCERIN 50MG/250ML 250 ML IV SCH ×2 (15:42→18:10)
[2017-11-12] MEDS: VANCOMYCIN 1,500 MG in D5W 5% 250 ML IV SCH (18:09)
[2017-11-13] VITALS (89 sets, daily range): BP systolic 126–185; BP diastolic 44–99
[2017-11-13] MEDS: InsuLIN REG 1unit/0.01ml Soln (100units/ml) SC SCH ×5 (00:05→23:30)
[2017-11-13] MEDS: hydrALAZINE HCL 25 MG TAB PO SCH ×5 (00:05→23:30)
[2017-11-13] MEDS: ACCU-CHEK COMFORT CURVE STRIP VI SCH ×5 (00:05→23:27)
[2017-11-13] MEDS: IPRATROPIUM BROM 0.5 MG/2.5ML INH SOL NEB SCH ×4 (00:06→18:35)
[2017-11-13] MEDS: ALBUTEROL SULF 2.5 MG/0.5ML(0.5%) NEB SOLN NEB SCH ×4 (00:06→18:35)
[2017-11-13] MEDS: PIPERACILLIN-TAZOB 3.375GM 100 ML IV SCH ×3 (06:08→22:17)
[2017-11-13] MEDS: ISOSORBIDE DINITRATE 10 MG TAB PO SCH ×3 (06:09→17:21)
[2017-11-13] MEDS ORDERED: CLOPIDOGREL BISULFATE 75 MG TAB PO SCH (10:00)
[2017-11-13] MEDS ORDERED: FUROSEMIDE 40 MG/4 ML VIAL ONE ×2 (11:12→15:00)
[2017-11-13] MEDS ORDERED: POTASSIUM EFFERVESENT TAB 25 MEQ GT ONE ×2 (11:15→15:15)
[2017-11-13] MEDS ORDERED: FUROSEMIDE 40 MG/4 ML VIAL IV ONE ×2 (11:15→15:15)
[2017-11-13] MEDS: SODIUM CHLOR 0.9% PF (SALINE LOCK) 10ML VIAL/SYR IV SCH ×2 (11:18→22:17)
[2017-11-13] MEDS: POTASSIUM EFFERVESENT TAB 25 MEQ PO SCH (11:18)
[2017-11-13] MEDS: ASPirin 81 mg TAB PO SCH (11:19)
[2017-11-13] MEDS: FUROSEMIDE 40 MG/4 ML VIAL IV SCH (11:19)
[2017-11-13] MEDS: PANTOPRAZOLE 40 MG/10 ML VIAL IV SCH (11:19)
[2017-11-13] MEDS: METOPROLOL TARTRATE 25 MG TAB PO SCH ×2 (11:19→22:18)
[2017-11-13] MEDS: fentaNYL Drip 2500mCg/250mlNS 250 ML IV SCH (12:04)
[2017-11-13] MEDS ORDERED: EPINEPHrine HCL 0.5 ML NEB NEB ONE (13:00)
[2017-11-13] MEDS ORDERED: methylPREDNISolone SOD SUCC 125 MG/2 ML VL IV ONE (13:00)
[2017-11-13] MEDS: MICAFUNGIN SODIUM 100 MG in SODIUM CHL 0.9% 100 ML IV SCH (13:04)
[2017-11-13 18:30] LABS: BUN/Creatinine Ratio 10.1; Potassium 4.5 mmol/L (3.5-5.1)
[2017-11-13] MEDS: NITROGLYCERIN 50MG/250ML 250 ML IV SCH ×2 (18:45→20:09)
[2017-11-13] MEDS: FUROSEMIDE INJECTION 250 MG in SODIUM CHL 0.9% 225 ML IV SCH (18:53)
[2017-11-13] MEDS: NICARDIPINE 25MG/250ML BAG KIT 250 ML IV SCH (20:08)
[2017-11-14] VITALS (81 sets, daily range): BP systolic 91–179; BP diastolic 35–83
[2017-11-14] MEDS: IPRATROPIUM BROM 0.5 MG/2.5ML INH SOL NEB SCH ×4 (00:12→18:24)
[2017-11-14] MEDS: ALBUTEROL SULF 2.5 MG/0.5ML(0.5%) NEB SOLN NEB SCH ×4 (00:12→18:24)
[2017-11-14] MEDS: NICARDIPINE 25MG/250ML BAG KIT 250 ML IV SCH ×5 (00:27→22:35)
[2017-11-14 03:59] LABS: Basophils # (auto) 0 uL; Basophils % (auto) 0.2 % (0.0-2.0); Eosinophils # (auto) 0 uL; Hemoglobin 9.7 g/dL (12.2-16.2); Mean Corpuscular Hgb Conc. 32.4 g/dL (32.0-36.0); White Blood Cell 8.7 10^3/uL (4.4-10.8)
[2017-11-14 04:01] LABS: Eosinophils % (auto) 0.1 % (0.0-7.0); Hematocrit 29.8 % (36.0-46.0); Lymphocytes # (auto) 2.1 uL; Lymphocytes % (auto) 24.7 % (10.0-50.0); Mean Corpuscular Volume 83.4 fL (80.0-100.0); Monocytes # (auto) 0.2 uL; Monocytes % (auto) 1.9 % (0.0-12.0); Neutrophils # (auto) 6.3 uL; Neutrophils % (auto) 73.1 % (37.0-80.0); Platelet Count (auto) 489 10^3/uL (140-450); Red Blood Cells 3.57 10^6/uL (4.0-5.20)
[2017-11-14 04:07] LABS: Red Cell Distribution Width 21.1 % (11.8-14.3)
[2017-11-14 04:15] LABS: BUN/Creatinine Ratio 11.7; Calcium 9.5 mg/dL (8.5-10.1); Potassium 3.8 mmol/L (3.5-5.1)
[2017-11-14] MEDS: VANCOMYCIN 1,500 MG in D5W 5% 250 ML IV SCH (05:32)
[2017-11-14] MEDS: hydrALAZINE HCL 25 MG TAB PO SCH ×4 (05:51→23:51)
[2017-11-14] MEDS: ISOSORBIDE DINITRATE 10 MG TAB PO SCH ×3 (05:52→18:08)
[2017-11-14] MEDS: InsuLIN REG 1unit/0.01ml Soln (100units/ml) SC SCH ×3 (06:00→23:51)
[2017-11-14] MEDS: ACCU-CHEK COMFORT CURVE STRIP VI SCH ×3 (06:00→23:48)
[2017-11-14] MEDS: PIPERACILLIN-TAZOB 3.375GM 100 ML IV SCH ×3 (06:59→22:34)
[2017-11-14] MEDS: PANTOPRAZOLE 40 MG/10 ML VIAL IV SCH (10:00)
[2017-11-14] MEDS: MICAFUNGIN SODIUM 100 MG in SODIUM CHL 0.9% 100 ML IV SCH (10:00)
[2017-11-14] MEDS: SODIUM CHLOR 0.9% PF (SALINE LOCK) 10ML VIAL/SYR IV SCH ×2 (10:47→22:34)
[2017-11-14] MEDS: ENOXAPARIN SOD 40 MG/0.4 ML SYRINGE SC SCH (10:53)
[2017-11-14] MEDS ORDERED: DEXTROSE (50%) 50ML SYRG IV PRN (12:45)
[2017-11-14] MEDS: POTASSIUM EFFERVESENT TAB 25 MEQ PO SCH (12:57)
[2017-11-14] MEDS: ASPirin 81 mg TAB PO SCH (12:57)
[2017-11-14] MEDS: METOPROLOL TARTRATE 25 MG TAB PO SCH ×2 (12:58→22:35)
[2017-11-14] MEDS: HALOPERIDOL LACTATE 5 MG/ML INJ VIAL IM PRN ×2 (13:46→14:47)
[2017-11-14] MEDS ORDERED: HALOPERIDOL LACTATE 5 MG/ML INJ VIAL IM ONE (14:30)
[2017-11-14] MEDS ORDERED: SUCCINYLCHOLINE CHLORIDE 20 MG/ML 10ML VIAL IV ONE ×2 (16:34→16:45)
[2017-11-14] MEDS ORDERED: fentaNYL CITRATE 100 MCG/2 ML VL ONE (16:34)
[2017-11-14] MEDS ORDERED: ETOMIDATE (2MG/ML) 20ML VIAL IV ONE ×2 (16:34→16:45)
[2017-11-14] MEDS ORDERED: MIDAZOLAM HCL 5 MG/ML-1ML VIAL ONE (16:38)
[2017-11-14] MEDS ORDERED: MIDAZOLAM HCL 5 MG/ML-1ML VIAL IV ONE (16:45)
[2017-11-14] MEDS: fentaNYL Drip 2500mCg/250mlNS 250 ML IV SCH (17:50)
[2017-11-14] MEDS: FUROSEMIDE INJECTION 250 MG in SODIUM CHL 0.9% 225 ML IV SCH (17:53)
[2017-11-14] MEDS: LABETALOL HCL 5 MG/ML ML 20ML VIAL IV PRN (20:55)
[2017-11-15] VITALS (92 sets, daily range): BP systolic 111–169; BP diastolic 32–75
[2017-11-15] MEDS: NICARDIPINE 25MG/250ML BAG KIT 250 ML IV SCH ×5 (00:17→20:17)
[2017-11-15] MEDS: ALBUTEROL SULF 2.5 MG/0.5ML(0.5%) NEB SOLN NEB SCH ×4 (00:23→18:17)
[2017-11-15] MEDS: IPRATROPIUM BROM 0.5 MG/2.5ML INH SOL NEB SCH ×4 (00:23→18:17)
[2017-11-15 04:19] LABS: Calcium 9.3 mg/dL (8.5-10.1); Potassium 3.4 mmol/L (3.5-5.1)
[2017-11-15 04:21] LABS: BUN/Creatinine Ratio 13.7
[2017-11-15] MEDS: PIPERACILLIN-TAZOB 3.375GM 100 ML IV SCH ×3 (05:43→22:33)
[2017-11-15] MEDS: hydrALAZINE HCL 25 MG TAB PO SCH ×3 (05:48→18:00)
[2017-11-15] MEDS: ISOSORBIDE DINITRATE 10 MG TAB PO SCH ×3 (05:49→17:54)
[2017-11-15] MEDS: ACCU-CHEK COMFORT CURVE STRIP VI SCH ×3 (05:56→17:54)
[2017-11-15] MEDS: InsuLIN REG 1unit/0.01ml Soln (100units/ml) SC SCH ×3 (05:58→18:00)
[2017-11-15] MEDS: SODIUM CHLOR 0.9% PF (SALINE LOCK) 10ML VIAL/SYR IV SCH ×2 (10:00→22:32)
[2017-11-15] MEDS: PANTOPRAZOLE 40 MG/10 ML VIAL IV SCH (10:34)
[2017-11-15] MEDS: ENOXAPARIN SOD 40 MG/0.4 ML SYRINGE SC SCH (10:35)
[2017-11-15] MEDS: METOPROLOL TARTRATE 25 MG TAB PO SCH ×2 (10:36→22:34)
[2017-11-15] MEDS: POTASSIUM EFFERVESENT TAB 25 MEQ PO SCH (10:36)
[2017-11-15] MEDS: ASPirin 81 mg TAB PO SCH (10:36)
[2017-11-15] MEDS: MICAFUNGIN SODIUM 100 MG in SODIUM CHL 0.9% 100 ML IV SCH (10:37)
[2017-11-15] MEDS ORDERED: FUROSEMIDE 40 MG/4 ML VIAL IV ONE (14:30)
[2017-11-15] MEDS ORDERED: POTASSIUM EFFERVESENT TAB 25 MEQ GT ONE (14:30)
[2017-11-15] MEDS ORDERED: ONDANSETRON HCL 4 MG/2 ML VIAL IV PRN (14:30)
[2017-11-15 17:35] LABS: INR 1.08 (0.9-1.15); Partial Thromboplastin Time 29.1 sec (23.78-33.04); Prothrombin Time 11.5 sec (9.27-12.13)
[2017-11-15] MEDS: fentaNYL Drip 2500mCg/250mlNS 250 ML IV SCH (17:53)
[2017-11-15] MEDS: VANCOMYCIN 1,500 MG in D5W 5% 250 ML IV SCH (18:00)
[2017-11-15] MEDS: FUROSEMIDE 40 MG/4 ML VIAL IV SCH (18:00)
[2017-11-15] MEDS: METOCLOPRAMIDE HCL 5MG/ml INJ 2ml VIAL IV SCH (22:32)
[2017-11-15] MEDS: POTASSIUM EFFERVESENT TAB 25 MEQ GT SCH (22:33)
[2017-11-16] VITALS (100 sets, daily range): BP systolic 113–192; BP diastolic 40–90
[2017-11-16] MEDS: InsuLIN REG 1unit/0.01ml Soln (100units/ml) SC SCH ×5 (00:20→23:53)
[2017-11-16] MEDS: ACCU-CHEK COMFORT CURVE STRIP VI SCH ×5 (00:20→23:39)
[2017-11-16] MEDS: ALBUTEROL SULF 2.5 MG/0.5ML(0.5%) NEB SOLN NEB SCH ×4 (00:48→18:51)
[2017-11-16] MEDS: IPRATROPIUM BROM 0.5 MG/2.5ML INH SOL NEB SCH ×4 (00:49→18:51)
[2017-11-16] MEDS: NICARDIPINE 25MG/250ML BAG KIT 250 ML IV SCH ×6 (01:17→21:17)
[2017-11-16] MEDS: LABETALOL HCL 5 MG/ML ML 20ML VIAL IV PRN (03:45)
[2017-11-16 04:58] LABS: BUN/Creatinine Ratio 14.8; Calcium 9.5 mg/dL (8.5-10.1); Potassium 3.9 mmol/L (3.5-5.1)
[2017-11-16] MEDS: FUROSEMIDE 40 MG/4 ML VIAL IV SCH ×2 (06:11→17:39)
[2017-11-16] MEDS: hydrALAZINE HCL 25 MG TAB PO SCH ×5 (06:12→23:39)
[2017-11-16] MEDS: PIPERACILLIN-TAZOB 3.375GM 100 ML IV SCH ×3 (06:12→22:30)
[2017-11-16] MEDS: METOCLOPRAMIDE HCL 5MG/ml INJ 2ml VIAL IV SCH ×3 (06:12→22:30)
[2017-11-16] MEDS: ISOSORBIDE DINITRATE 10 MG TAB PO SCH ×3 (06:13→17:39)
[2017-11-16 08:48] LABS: Basophils # (auto) 0.1 uL
[2017-11-16 08:50] LABS: Neutrophils % (auto) 60.9 % (37.0-80.0)
[2017-11-16 08:53] LABS: Eosinophils # (auto) 0 uL; Lymphocytes # (auto) 2.2 uL; Neutrophils # (auto) 5.5 uL; White Blood Cell 9.1 10^3/uL (4.4-10.8)
[2017-11-16 08:54] LABS: Eosinophils % (auto) 0.4 % (0.0-7.0); Hematocrit 28.9 % (36.0-46.0); Hemoglobin 9.2 g/dL (12.2-16.2); Lymphocytes % (auto) 24.5 % (10.0-50.0); Mean Corpuscular Hemoglobin 26.7 pg (28.0-32.0); Mean Corpuscular Volume 83.5 fL (80.0-100.0); Monocytes # (auto) 1.2 uL; Monocytes % (auto) 13.2 % (0.0-12.0); Nucleated Red Blood Cells % 0.1 %; Platelet Count (auto) 490 10^3/uL (140-450); Red Blood Cells 3.46 10^6/uL (4.0-5.20)
[2017-11-16] MEDS ORDERED: LIDOCAINE 1% (LOCAL ANESTH.) PF 5ml SDV ONE (09:00)
[2017-11-16] MEDS ORDERED: fentaNYL CITRATE 100 MCG/2 ML VL ONE ×2 (09:31→09:37)
[2017-11-16] MEDS ORDERED: MIDAZOLAM HCL 1MG/1ML-2 ML VIAL ONE ×2 (09:31→09:43)
[2017-11-16] MEDS: POTASSIUM EFFERVESENT TAB 25 MEQ PO SCH (10:00)
[2017-11-16] MEDS: POTASSIUM EFFERVESENT TAB 25 MEQ GT SCH ×2 (10:16→22:29)
[2017-11-16] MEDS: ASPirin 81 mg TAB PO SCH (10:16)
[2017-11-16] MEDS: ENOXAPARIN SOD 40 MG/0.4 ML SYRINGE SC SCH (10:17)
[2017-11-16] MEDS: PANTOPRAZOLE 40 MG/10 ML VIAL IV SCH (10:17)
[2017-11-16] MEDS: METOPROLOL TARTRATE 25 MG TAB PO SCH ×2 (10:17→22:30)
[2017-11-16] MEDS: SODIUM CHLOR 0.9% PF (SALINE LOCK) 10ML VIAL/SYR IV SCH ×2 (10:18→22:30)
[2017-11-16] MEDS: MICAFUNGIN SODIUM 100 MG in SODIUM CHL 0.9% 100 ML IV SCH (10:18)
[2017-11-16] MEDS ORDERED: Glucerna 1.2 Cal 1Liter BOTTLE GT SCH (15:00)
[2017-11-16] MEDS: fentaNYL Drip 2500mCg/250mlNS 250 ML IV SCH (16:41)
[2017-11-16] MEDS ORDERED: VANCOMYCIN 1GM/250ML 250 ML IV ONE (18:00)
[2017-11-16] MEDS: Glucerna 1.2 Cal 1Liter BOTTLE GT SCH (18:51)
[2017-11-17] VITALS (84 sets, daily range): BP systolic 126–199; BP diastolic 37–139
[2017-11-17] MEDS: NICARDIPINE 25MG/250ML BAG KIT 250 ML IV SCH ×4 (02:17→17:17)
[2017-11-17] MEDS: ALBUTEROL SULF 2.5 MG/0.5ML(0.5%) NEB SOLN NEB SCH ×5 (02:17→18:08)
[2017-11-17] MEDS: IPRATROPIUM BROM 0.5 MG/2.5ML INH SOL NEB SCH ×5 (02:17→18:08)
[2017-11-17] MEDS: LABETALOL HCL 5 MG/ML ML 20ML VIAL IV PRN (03:00)
[2017-11-17 05:28] LABS: BUN/Creatinine Ratio 13.1; Calcium 9.8 mg/dL (8.5-10.1); Potassium 3.9 mmol/L (3.5-5.1)
[2017-11-17] MEDS: InsuLIN REG 1unit/0.01ml Soln (100units/ml) SC SCH ×4 (06:00→23:16)
[2017-11-17] MEDS: METOCLOPRAMIDE HCL 5MG/ml INJ 2ml VIAL IV SCH ×3 (06:00→21:28)
[2017-11-17] MEDS: ACCU-CHEK COMFORT CURVE STRIP VI SCH ×4 (06:00→23:16)
[2017-11-17] MEDS: FUROSEMIDE 40 MG/4 ML VIAL IV SCH ×2 (06:00→17:57)
[2017-11-17] MEDS: PIPERACILLIN-TAZOB 3.375GM 100 ML IV SCH (06:00)
[2017-11-17] MEDS: ISOSORBIDE DINITRATE 10 MG TAB PO SCH ×3 (06:00→17:57)
[2017-11-17] MEDS: hydrALAZINE HCL 25 MG TAB PO SCH ×4 (06:00→23:15)
[2017-11-17] MEDS: ENOXAPARIN SOD 40 MG/0.4 ML SYRINGE SC SCH (10:12)
[2017-11-17] MEDS: ASPirin 81 mg TAB PO SCH (10:12)
[2017-11-17] MEDS: SODIUM CHLOR 0.9% PF (SALINE LOCK) 10ML VIAL/SYR IV SCH ×2 (10:12→21:29)
[2017-11-17] MEDS: PANTOPRAZOLE 40 MG/10 ML VIAL IV SCH (10:12)
[2017-11-17] MEDS: POTASSIUM EFFERVESENT TAB 25 MEQ GT SCH ×2 (10:12→21:28)
[2017-11-17] MEDS: MICAFUNGIN SODIUM 100 MG in SODIUM CHL 0.9% 100 ML IV SCH (10:13)
[2017-11-17] MEDS: METOPROLOL TARTRATE 25 MG TAB PO SCH ×2 (10:13→21:28)
[2017-11-17] MEDS: cefTRIAXone 1GM/10ml IVPUSH 10 ML IV SCH (14:14)
[2017-11-17] MEDS: MORPHINE SULF INJ 2 MG/ML SYRINGE 1ML IV PRN ×2 (16:22→20:48)
[2017-11-17] MEDS: fentaNYL Drip 2500mCg/250mlNS 250 ML IV SCH (16:26)
[2017-11-18] VITALS (69 sets, daily range): BP systolic 117–184; BP diastolic 42–98
[2017-11-18] MEDS: NICARDIPINE 25MG/250ML BAG KIT 250 ML IV SCH ×6 (00:11→23:17)
[2017-11-18] MEDS: ALBUTEROL SULF 2.5 MG/0.5ML(0.5%) NEB SOLN NEB SCH ×4 (00:21→19:07)
[2017-11-18] MEDS: IPRATROPIUM BROM 0.5 MG/2.5ML INH SOL NEB SCH ×4 (00:21→19:07)
[2017-11-18 04:00] LABS: Calcium 9.2 mg/dL (8.5-10.1); Potassium 3.9 mmol/L (3.5-5.1)
[2017-11-18 04:02] LABS: BUN/Creatinine Ratio 13.8
[2017-11-18] MEDS: FUROSEMIDE 40 MG/4 ML VIAL IV SCH ×2 (06:10→17:05)
[2017-11-18] MEDS: METOCLOPRAMIDE HCL 5MG/ml INJ 2ml VIAL IV SCH ×3 (06:10→22:12)
[2017-11-18] MEDS: hydrALAZINE HCL 25 MG TAB PO SCH ×4 (06:11→23:41)
[2017-11-18] MEDS: ISOSORBIDE DINITRATE 10 MG TAB PO SCH ×3 (06:11→17:06)
[2017-11-18] MEDS: ACCU-CHEK COMFORT CURVE STRIP VI SCH ×4 (06:11→23:44)
[2017-11-18] MEDS: InsuLIN REG 1unit/0.01ml Soln (100units/ml) SC SCH ×4 (06:14→23:48)
[2017-11-18] MEDS: ASPirin 81 mg TAB PO SCH (09:43)
[2017-11-18] MEDS: ENOXAPARIN SOD 40 MG/0.4 ML SYRINGE SC SCH (09:43)
[2017-11-18] MEDS: PANTOPRAZOLE 40 MG/10 ML VIAL IV SCH (09:43)
[2017-11-18] MEDS: SODIUM CHLOR 0.9% PF (SALINE LOCK) 10ML VIAL/SYR IV SCH ×2 (09:44→22:04)
[2017-11-18] MEDS: POTASSIUM EFFERVESENT TAB 25 MEQ GT SCH ×2 (09:44→22:12)
[2017-11-18] MEDS: METOPROLOL TARTRATE 25 MG TAB PO SCH ×2 (09:44→22:13)
[2017-11-18] MEDS: FLUCONAZOLE 200MG/100ML 100 ML IV SCH (09:44)
[2017-11-18] MEDS: LINEZOLID 600MG/300ML 300 ML IV SCH ×2 (12:00→22:12)
[2017-11-18] MEDS: cefTRIAXone 1GM/10ml IVPUSH 10 ML IV SCH (14:00)
[2017-11-18] MEDS: fentaNYL Drip 2500mCg/250mlNS 250 ML IV SCH (16:41)
[2017-11-19] VITALS (53 sets, daily range): BP systolic 129–184; BP diastolic 49–131
[2017-11-19] MEDS: ALBUTEROL SULF 2.5 MG/0.5ML(0.5%) NEB SOLN NEB SCH ×4 (00:05→19:05)
[2017-11-19] MEDS: IPRATROPIUM BROM 0.5 MG/2.5ML INH SOL NEB SCH ×4 (00:05→19:05)
[2017-11-19] MEDS: MORPHINE SULF INJ 2 MG/ML SYRINGE 1ML IV PRN (03:55)
[2017-11-19 04:01] LABS: Basophils # (auto) 0.1 uL; Basophils % (auto) 0.7 % (0.0-2.0); Eosinophils # (auto) 0.1 uL; Hemoglobin 9.9 g/dL (12.2-16.2); Monocytes # (auto) 1.8 uL
[2017-11-19 04:02] LABS: Eosinophils % (auto) 0.8 % (0.0-7.0); Lymphocytes # (auto) 4.2 uL; Lymphocytes % (auto) 25.9 % (10.0-50.0); Mean Corpuscular Hemoglobin 26.3 pg (28.0-32.0); Mean Corpuscular Hgb Conc. 31.9 g/dL (32.0-36.0); Mean Corpuscular Volume 82.3 fL (80.0-100.0); Monocytes % (auto) 11.1 % (0.0-12.0); Neutrophils # (auto) 10.1 uL; Neutrophils % (auto) 61.5 % (37.0-80.0); Platelet Count (auto) 509 10^3/uL (140-450); Red Blood Cells 3.76 10^6/uL (4.0-5.20); White Blood Cell 16.4 10^3/uL (4.4-10.8)
[2017-11-19 04:08] LABS: Red Cell Distribution Width 20.2 % (11.8-14.3)
[2017-11-19 04:16] LABS: Albumin 2.2 g/dL (3.4-5.0); BUN/Creatinine Ratio 12.8; Calcium 9.5 mg/dL (8.5-10.1); INR 1.03 (0.9-1.15); Partial Thromboplastin Time 26.1 sec (23.78-33.04); Potassium 3.6 mmol/L (3.5-5.1)
[2017-11-19] MEDS: NICARDIPINE 25MG/250ML BAG KIT 250 ML IV SCH ×4 (04:17→19:17)
[2017-11-19 04:18] LABS: Bilirubin, Total 0.8 mg/dL (0.2-1.0); Total Protein 7.5 g/dL (6.4-8.2)
[2017-11-19] MEDS: METOCLOPRAMIDE HCL 5MG/ml INJ 2ml VIAL IV SCH ×3 (05:32→22:26)
[2017-11-19] MEDS: FUROSEMIDE 40 MG/4 ML VIAL IV SCH ×2 (05:32→18:17)
[2017-11-19] MEDS: ISOSORBIDE DINITRATE 10 MG TAB PO SCH ×3 (05:33→18:18)
[2017-11-19] MEDS: InsuLIN REG 1unit/0.01ml Soln (100units/ml) SC SCH ×3 (05:33→18:45)
[2017-11-19] MEDS: ACCU-CHEK COMFORT CURVE STRIP VI SCH ×3 (05:33→18:15)
[2017-11-19] MEDS: hydrALAZINE HCL 25 MG TAB PO SCH ×3 (05:48→18:19)
[2017-11-19] MEDS: ENOXAPARIN SOD 40 MG/0.4 ML SYRINGE SC SCH (09:48)
[2017-11-19] MEDS: ASPirin 81 mg TAB PO SCH (09:48)
[2017-11-19] MEDS: PANTOPRAZOLE 40 MG/10 ML VIAL IV SCH (09:48)
[2017-11-19] MEDS: POTASSIUM EFFERVESENT TAB 25 MEQ GT SCH ×2 (09:48→22:26)
[2017-11-19] MEDS: METOPROLOL TARTRATE 25 MG TAB PO SCH ×2 (09:49→22:27)
[2017-11-19] MEDS: FLUCONAZOLE 200MG/100ML 100 ML IV SCH (09:49)
[2017-11-19] MEDS: SODIUM CHLOR 0.9% PF (SALINE LOCK) 10ML VIAL/SYR IV SCH ×2 (09:53→22:26)
[2017-11-19] MEDS: LINEZOLID 600MG/300ML 300 ML IV SCH ×2 (11:15→22:26)
[2017-11-19] MEDS: fentaNYL Drip 2500mCg/250mlNS 250 ML IV SCH (16:02)
[2017-11-19] MEDS: cefTRIAXone 1GM/10ml IVPUSH 10 ML IV SCH (18:45)
[2017-11-19] MEDS: LABETALOL HCL 5 MG/ML ML 20ML VIAL IV PRN (20:00)
[2017-11-20] VITALS (97 sets, daily range): BP systolic 105–188; BP diastolic 43–89
[2017-11-20] MEDS: LABETALOL HCL 5 MG/ML ML 20ML VIAL IV PRN
[2017-11-20] MEDS: IPRATROPIUM BROM 0.5 MG/2.5ML INH SOL NEB SCH ×4 (00:18→18:18)
[2017-11-20] MEDS: ALBUTEROL SULF 2.5 MG/0.5ML(0.5%) NEB SOLN NEB SCH ×4 (00:19→18:18)
[2017-11-20] MEDS: hydrALAZINE HCL 25 MG TAB PO SCH ×4 (00:23→18:00)
[2017-11-20] MEDS: ACCU-CHEK COMFORT CURVE STRIP VI SCH ×4 (00:24→18:25)
[2017-11-20 03:56] LABS: Basophils # (auto) 0 uL
[2017-11-20 03:59] LABS: Basophils % (auto) 0.2 % (0.0-2.0); Eosinophils # (auto) 0.1 uL; Eosinophils % (auto) 0.9 % (0.0-7.0); Hematocrit 29.4 % (36.0-46.0); Hemoglobin 9.7 g/dL (12.2-16.2); Lymphocytes # (auto) 3.8 uL; Lymphocytes % (auto) 27.2 % (10.0-50.0); Mean Corpuscular Hemoglobin 26.8 pg (28.0-32.0); Mean Corpuscular Hgb Conc. 32.8 g/dL (32.0-36.0); Mean Corpuscular Volume 81.7 fL (80.0-100.0); Monocytes # (auto) 1.5 uL; Monocytes % (auto) 11.2 % (0.0-12.0); Neutrophils # (auto) 8.4 uL; Neutrophils % (auto) 60.5 % (37.0-80.0); Nucleated Red Blood Cells % 0.1 %; Platelet Count (auto) 512 10^3/uL (140-450); White Blood Cell 13.8 10^3/uL (4.4-10.8)
[2017-11-20 04:14] LABS: Calcium 9.5 mg/dL (8.5-10.1); Potassium 3.4 mmol/L (3.5-5.1)
[2017-11-20 04:16] LABS: BUN/Creatinine Ratio 12.2
[2017-11-20] MEDS: NICARDIPINE 25MG/250ML BAG KIT 250 ML IV SCH ×5 (05:17→22:33)
[2017-11-20] MEDS: FUROSEMIDE 40 MG/4 ML VIAL IV SCH ×2 (06:00→18:02)
[2017-11-20] MEDS: ISOSORBIDE DINITRATE 10 MG TAB PO SCH ×3 (06:00→18:00)
[2017-11-20] MEDS: InsuLIN REG 1unit/0.01ml Soln (100units/ml) SC SCH ×4 (06:00→18:00)
[2017-11-20] MEDS: METOCLOPRAMIDE HCL 5MG/ml INJ 2ml VIAL IV SCH ×3 (06:00→22:00)
[2017-11-20] MEDS: SODIUM CHLOR 0.9% PF (SALINE LOCK) 10ML VIAL/SYR IV SCH ×2 (10:00→22:00)
[2017-11-20] MEDS: ENOXAPARIN SOD 40 MG/0.4 ML SYRINGE SC SCH (10:00)
[2017-11-20] MEDS: FLUCONAZOLE 200MG/100ML 100 ML IV SCH (10:53)
[2017-11-20] MEDS: POTASSIUM EFFERVESENT TAB 25 MEQ GT SCH ×2 (10:53→22:00)
[2017-11-20] MEDS: PANTOPRAZOLE 40 MG/10 ML VIAL IV SCH (10:53)
[2017-11-20] MEDS: LINEZOLID 600MG/300ML 300 ML IV SCH ×2 (10:54→22:00)
[2017-11-20] MEDS: ASPirin 81 mg TAB PO SCH (10:55)
[2017-11-20] MEDS: METOPROLOL TARTRATE 25 MG TAB PO SCH ×2 (10:55→22:00)
[2017-11-20] MEDS ORDERED: SODIUM CHLORIDE LOCK 10 ML ONE (11:08)
[2017-11-20] MEDS ORDERED: diphenhdrAMINE HCL 50 MG/1 ML VL ONE (11:08)
[2017-11-20] MEDS ORDERED: LORazepam 2MG/ML-1ML VIAL IV PRN (12:15)
[2017-11-20] MEDS: MIDAZOLAM HCL 5 MG/ML-1ML VIAL ONE ×2 (13:03→13:06)
[2017-11-20] MEDS: fentaNYL CITRATE 100 MCG/2 ML VL ONE ×2 (13:03→13:06)
[2017-11-20] MEDS: cefTRIAXone 1GM/10ml IVPUSH 10 ML IV SCH (14:00)
[2017-11-20] MEDS ORDERED: D5W/SOD CHL 0.45% 1,000 ML IV SCH (16:00)
[2017-11-20] MEDS: fentaNYL Drip 2500mCg/250mlNS 250 ML IV SCH (16:41)
[2017-11-21] VITALS (105 sets, daily range): BP systolic 108–170; BP diastolic 35–70
[2017-11-21] MEDS: ALBUTEROL SULF 2.5 MG/0.5ML(0.5%) NEB SOLN NEB SCH ×4 (00:18→18:46)
[2017-11-21] MEDS: IPRATROPIUM BROM 0.5 MG/2.5ML INH SOL NEB SCH ×4 (00:18→18:46)
[2017-11-21 03:42] LABS: Eosinophils # (auto) 0.1 uL; Hemoglobin 9.2 g/dL (12.2-16.2); Lymphocytes # (auto) 3.4 uL; Neutrophils # (auto) 8.5 uL
[2017-11-21 03:44] LABS: Basophils # (auto) 0 uL; Basophils % (auto) 0.3 % (0.0-2.0); Hematocrit 28.9 % (36.0-46.0); Lymphocytes % (auto) 25.2 % (10.0-50.0); Mean Corpuscular Hemoglobin 26.2 pg (28.0-32.0); Mean Corpuscular Hgb Conc. 31.7 g/dL (32.0-36.0); Mean Corpuscular Volume 82.5 fL (80.0-100.0); Monocytes # (auto) 1.5 uL; Monocytes % (auto) 10.9 % (0.0-12.0); Neutrophils % (auto) 62.6 % (37.0-80.0); Platelet Count (auto) 472 10^3/uL (140-450); Red Blood Cells 3.51 10^6/uL (4.0-5.20); White Blood Cell 13.6 10^3/uL (4.4-10.8)
[2017-11-21 03:56] LABS: BUN/Creatinine Ratio 10.5
[2017-11-21 04:11] LABS: Red Cell Distribution Width 20.5 % (11.8-14.3)
[2017-11-21] MEDS: NICARDIPINE 25MG/250ML BAG KIT 250 ML IV SCH (05:00)
[2017-11-21] MEDS: hydrALAZINE HCL 25 MG TAB PO SCH ×4 (06:00→18:06)
[2017-11-21] MEDS: ISOSORBIDE DINITRATE 10 MG TAB PO SCH ×3 (06:00→18:05)
[2017-11-21] MEDS: FUROSEMIDE 40 MG/4 ML VIAL IV SCH ×2 (06:13→18:05)
[2017-11-21] MEDS: METOCLOPRAMIDE HCL 5MG/ml INJ 2ml VIAL IV SCH ×3 (06:13→21:56)
[2017-11-21] MEDS: InsuLIN REG 1unit/0.01ml Soln (100units/ml) SC SCH ×4 (06:14→18:07)
[2017-11-21] MEDS: ACCU-CHEK COMFORT CURVE STRIP VI SCH ×4 (06:14→18:06)
[2017-11-21] MEDS: ENOXAPARIN SOD 40 MG/0.4 ML SYRINGE SC SCH (09:35)
[2017-11-21] MEDS: FLUCONAZOLE 200MG/100ML 100 ML IV SCH (09:35)
[2017-11-21] MEDS: SODIUM CHLOR 0.9% PF (SALINE LOCK) 10ML VIAL/SYR IV SCH ×2 (09:36→21:56)
[2017-11-21] MEDS: POTASSIUM EFFERVESENT TAB 25 MEQ GT SCH ×2 (09:36→10:02)
[2017-11-21] MEDS: PANTOPRAZOLE 40 MG/10 ML VIAL IV SCH (09:36)
[2017-11-21] MEDS: ASPirin 81 mg TAB PO SCH ×2 (09:37→10:02)
[2017-11-21] MEDS: METOPROLOL TARTRATE 25 MG TAB PO SCH ×3 (09:37→21:55)
[2017-11-21] MEDS: Glucerna 1.2 Cal 1Liter BOTTLE GT SCH (10:12)
[2017-11-21] MEDS: LINEZOLID 600MG/300ML 300 ML IV SCH (10:57)
[2017-11-21] MEDS ORDERED: MORPHINE SULF INJ 2 MG/ML SYRINGE 1ML IV PRN (14:45)
[2017-11-21] MEDS ORDERED: POTASSIUM EFFERVESENT TAB 25 MEQ PO ONE (14:45)
[2017-11-21] MEDS: fentaNYL Drip 2500mCg/250mlNS 250 ML IV SCH (16:41)
[2017-11-22] VITALS (100 sets, daily range): BP systolic 83–176; BP diastolic 16–124
[2017-11-22] MEDS: IPRATROPIUM BROM 0.5 MG/2.5ML INH SOL NEB SCH ×4 (00:04→18:20)
[2017-11-22] MEDS: ALBUTEROL SULF 2.5 MG/0.5ML(0.5%) NEB SOLN NEB SCH ×4 (00:04→18:20)
[2017-11-22] MEDS: hydrALAZINE HCL 25 MG TAB PO SCH ×4 (00:13→19:00)
[2017-11-22] MEDS: ACCU-CHEK COMFORT CURVE STRIP VI SCH ×4 (00:13→18:11)
[2017-11-22 04:13] LABS: Eosinophils # (auto) 0.2 uL; Hemoglobin 9.4 g/dL (12.2-16.2); Monocytes # (auto) 1.4 uL; Monocytes % (auto) 9.6 % (0.0-12.0); Red Cell Distribution Width 19.7 % (11.8-14.3)
[2017-11-22 04:15] LABS: Basophils # (auto) 0 uL; Basophils % (auto) 0.3 % (0.0-2.0); Eosinophils % (auto) 1.3 % (0.0-7.0); Hematocrit 28.9 % (36.0-46.0); Lymphocytes % (auto) 26.8 % (10.0-50.0); Mean Corpuscular Hemoglobin 26.6 pg (28.0-32.0); Mean Corpuscular Hgb Conc. 32.3 g/dL (32.0-36.0); Mean Corpuscular Volume 82.2 fL (80.0-100.0); Neutrophils # (auto) 9.3 uL; Platelet Count (auto) 447 10^3/uL (140-450); Red Blood Cells 3.52 10^6/uL (4.0-5.20)
[2017-11-22 04:22] LABS: BUN/Creatinine Ratio 12.1; Calcium 9.1 mg/dL (8.5-10.1); Potassium 3.6 mmol/L (3.5-5.1)
[2017-11-22] MEDS: LABETALOL HCL 5 MG/ML ML 20ML VIAL IV PRN (05:41)
[2017-11-22] MEDS: FUROSEMIDE 40 MG/4 ML VIAL IV SCH (06:16)
[2017-11-22] MEDS: METOCLOPRAMIDE HCL 5MG/ml INJ 2ml VIAL IV SCH ×3 (06:16→22:25)
[2017-11-22] MEDS: InsuLIN REG 1unit/0.01ml Soln (100units/ml) SC SCH ×4 (06:17→18:15)
[2017-11-22] MEDS: LEVOFLOXACIN 500MG 100 ML IV SCH (09:14)
[2017-11-22] MEDS: FLUCONAZOLE 200MG/100ML 100 ML IV SCH (10:48)
[2017-11-22] MEDS: ASPirin 81 mg TAB PO SCH (10:48)
[2017-11-22] MEDS: ENOXAPARIN SOD 40 MG/0.4 ML SYRINGE SC SCH (10:49)
[2017-11-22] MEDS: POTASSIUM EFFERVESENT TAB 25 MEQ GT SCH ×2 (10:49→22:25)
[2017-11-22] MEDS: PANTOPRAZOLE 40 MG/10 ML VIAL IV SCH (10:49)
[2017-11-22] MEDS: SODIUM CHLOR 0.9% PF (SALINE LOCK) 10ML VIAL/SYR IV SCH ×2 (10:49→22:25)
[2017-11-22] MEDS: METOPROLOL TARTRATE 50 MG TAB PO SCH ×2 (10:50→22:25)
[2017-11-22] MEDS: ISOSORBIDE DINITRATE 10 MG TAB PO SCH ×2 (12:47→18:25)
[2017-11-22] MEDS: fentaNYL Drip 2500mCg/250mlNS 250 ML IV SCH (16:41)
[2017-11-23] VITALS (82 sets, daily range): BP systolic 109–194; BP diastolic 45–90
[2017-11-23] MEDS: IPRATROPIUM BROM 0.5 MG/2.5ML INH SOL NEB SCH ×4 (00:17→19:52)
[2017-11-23] MEDS: ALBUTEROL SULF 2.5 MG/0.5ML(0.5%) NEB SOLN NEB SCH ×4 (00:17→19:52)
[2017-11-23] MEDS: InsuLIN REG 1unit/0.01ml Soln (100units/ml) SC SCH ×5 (00:27→23:52)
[2017-11-23] MEDS: ACCU-CHEK COMFORT CURVE STRIP VI SCH ×5 (00:27→23:52)
[2017-11-23] MEDS: hydrALAZINE HCL 25 MG TAB PO SCH ×3 (00:28→12:28)
[2017-11-23 04:08] LABS: Basophils # (auto) 0.2 uL; Eosinophils # (auto) 0.1 uL; Hematocrit 30.2 % (36.0-46.0); Hemoglobin 9.7 g/dL (12.2-16.2); Mean Corpuscular Hemoglobin 26.5 pg (28.0-32.0); Monocytes # (auto) 1.7 uL
[2017-11-23] MEDS: LABETALOL HCL 5 MG/ML ML 20ML VIAL IV PRN (04:08)
[2017-11-23 04:11] LABS: Basophils % (auto) 1.1 % (0.0-2.0); Eosinophils % (auto) 0.5 % (0.0-7.0); Lymphocytes # (auto) 4.8 uL; Lymphocytes % (auto) 27.8 % (10.0-50.0); Mean Corpuscular Volume 82.8 fL (80.0-100.0); Neutrophils # (auto) 10.6 uL; Neutrophils % (auto) 60.6 % (37.0-80.0); Platelet Count (auto) 395 10^3/uL (140-450); Red Blood Cells 3.65 10^6/uL (4.0-5.20); Red Cell Distribution Width 19.6 % (11.8-14.3); White Blood Cell 17.4 10^3/uL (4.4-10.8)
[2017-11-23 04:23] LABS: BUN/Creatinine Ratio 12.1; Calcium 9.3 mg/dL (8.5-10.1); Potassium 4.1 mmol/L (3.5-5.1)
[2017-11-23] MEDS: METOCLOPRAMIDE HCL 5MG/ml INJ 2ml VIAL IV SCH ×3 (06:24→23:52)
[2017-11-23] MEDS: ISOSORBIDE DINITRATE 10 MG TAB PO SCH ×3 (06:24→19:07)
[2017-11-23] MEDS: ENOXAPARIN SOD 40 MG/0.4 ML SYRINGE SC SCH (10:13)
[2017-11-23] MEDS: FUROSEMIDE 40 MG/4 ML VIAL IV SCH (10:13)
[2017-11-23] MEDS: LEVOFLOXACIN 500MG 100 ML IV SCH (10:13)
[2017-11-23] MEDS: ASPirin 81 mg TAB PO SCH (10:13)
[2017-11-23] MEDS: POTASSIUM EFFERVESENT TAB 25 MEQ GT SCH ×2 (10:14→23:52)
[2017-11-23] MEDS: PANTOPRAZOLE 40 MG/10 ML VIAL IV SCH (10:14)
[2017-11-23] MEDS: SODIUM CHLOR 0.9% PF (SALINE LOCK) 10ML VIAL/SYR IV SCH ×2 (10:14→23:52)
[2017-11-23] MEDS: METOPROLOL TARTRATE 50 MG TAB PO SCH ×2 (11:00→23:51)
[2017-11-23] MEDS ORDERED: MICAFUNGIN SODIUM 100 MG in SODIUM CHL 0.9% 100 ML IV ONE (11:30)
[2017-11-23] MEDS: MIRTAZAPINE 30 MG TAB PO SCH (23:52)
[2017-11-24] VITALS (8 sets, daily range): BP systolic 133–175; BP diastolic 56–78
[2017-11-24] MEDS: IPRATROPIUM BROM 0.5 MG/2.5ML INH SOL NEB SCH ×4 (00:10→18:25)
[2017-11-24] MEDS: ALBUTEROL SULF 2.5 MG/0.5ML(0.5%) NEB SOLN NEB SCH ×4 (00:10→18:25)
[2017-11-24] MEDS: hydrALAZINE HCL 25 MG TAB PO SCH ×5 (00:51→18:25)
[2017-11-24 04:47] LABS: Basophils # (auto) 0.1 uL; Basophils % (auto) 0.4 % (0.0-2.0); Eosinophils # (auto) 0.1 uL; Eosinophils % (auto) 0.3 % (0.0-7.0); Hemoglobin 9.9 g/dL (12.2-16.2); Lymphocytes # (auto) 4.9 uL; Lymphocytes % (auto) 25.2 % (10.0-50.0); Mean Corpuscular Hemoglobin 26.4 pg (28.0-32.0); Mean Corpuscular Hgb Conc. 31.9 g/dL (32.0-36.0); Mean Corpuscular Volume 82.7 fL (80.0-100.0); Monocytes # (auto) 1.9 uL; Neutrophils # (auto) 12.4 uL; Neutrophils % (auto) 64.1 % (37.0-80.0); Platelet Count (auto) 414 10^3/uL (140-450); Red Blood Cells 3.75 10^6/uL (4.0-5.20); Red Cell Distribution Width 19.6 % (11.8-14.3); White Blood Cell 19.3 10^3/uL (4.4-10.8)
[2017-11-24 05:03] LABS: BUN/Creatinine Ratio 12.2; Calcium 9.8 mg/dL (8.5-10.1); Potassium 4.1 mmol/L (3.5-5.1)
[2017-11-24] MEDS: ACCU-CHEK COMFORT CURVE STRIP VI SCH ×3 (06:20→18:24)
[2017-11-24] MEDS: ISOSORBIDE DINITRATE 10 MG TAB PO SCH ×2 (06:28→18:25)
[2017-11-24] MEDS: InsuLIN REG 1unit/0.01ml Soln (100units/ml) SC SCH ×3 (06:28→18:24)
[2017-11-24] MEDS: PANTOPRAZOLE 40 MG/10 ML VIAL IV SCH (11:54)
[2017-11-24] MEDS: FUROSEMIDE 40 MG/4 ML VIAL IV SCH ×2 (11:54→18:00)
[2017-11-24] MEDS: ASPirin 81 mg TAB PO SCH (11:55)
[2017-11-24] MEDS: METOPROLOL TARTRATE 50 MG TAB PO SCH ×2 (11:55→22:47)
[2017-11-24] MEDS: SODIUM CHLOR 0.9% PF (SALINE LOCK) 10ML VIAL/SYR IV SCH ×2 (11:56→22:55)
[2017-11-24] MEDS: POTASSIUM EFFERVESENT TAB 25 MEQ GT SCH ×2 (11:56→22:45)
[2017-11-24] MEDS: ENOXAPARIN SOD 40 MG/0.4 ML SYRINGE SC SCH (11:56)
[2017-11-24] MEDS: LEVOFLOXACIN 500MG 100 ML IV SCH (13:12)
[2017-11-24] MEDS: MICAFUNGIN SODIUM 100 MG in SODIUM CHL 0.9% 100 ML IV SCH (13:33)
[2017-11-24] MEDS: METOCLOPRAMIDE HCL 5MG/ml INJ 2ml VIAL IV SCH ×2 (13:34→22:44)
[2017-11-24] MEDS ORDERED: MORPHINE SULF INJ 2 MG/ML SYRINGE 1ML IV PRN ×2 (13:45→14:00)
[2017-11-24] MEDS ORDERED: ISOSORBIDE DINITRATE 10 MG TAB PO SCH (18:00)
[2017-11-24] MEDS: MIRTAZAPINE 30 MG TAB PO SCH (22:45)
[2017-11-25] VITALS (9 sets, daily range): BP systolic 134–160; BP diastolic 58–69
[2017-11-25] MEDS: ACCU-CHEK COMFORT CURVE STRIP VI SCH ×4 (00:01→18:00)
[2017-11-25] MEDS: InsuLIN REG 1unit/0.01ml Soln (100units/ml) SC SCH ×4 (00:01→18:00)
[2017-11-25] MEDS: ALBUTEROL SULF 2.5 MG/0.5ML(0.5%) NEB SOLN NEB SCH ×4 (00:11→18:49)
[2017-11-25] MEDS: IPRATROPIUM BROM 0.5 MG/2.5ML INH SOL NEB SCH ×4 (00:11→18:49)
[2017-11-25] MEDS: hydrALAZINE HCL 25 MG TAB PO SCH ×4 (00:18→18:00)
[2017-11-25 05:02] LABS: Basophils # (auto) 0.1 uL; Eosinophils # (auto) 0.1 uL; Hemoglobin 9.5 g/dL (12.2-16.2); Mean Corpuscular Hemoglobin 26.6 pg (28.0-32.0); Mean Corpuscular Hgb Conc. 32.1 g/dL (32.0-36.0); Mean Corpuscular Volume 82.9 fL (80.0-100.0)
[2017-11-25 05:05] LABS: Basophils % (auto) 0.3 % (0.0-2.0); Eosinophils % (auto) 0.4 % (0.0-7.0); Hematocrit 29.7 % (36.0-46.0); Lymphocytes # (auto) 4.1 uL; Lymphocytes % (auto) 22.8 % (10.0-50.0); Monocytes % (auto) 11.3 % (0.0-12.0); Neutrophils # (auto) 11.6 uL; Neutrophils % (auto) 65.2 % (37.0-80.0); Nucleated Red Blood Cells % 0.1 %; Platelet Count (auto) 322 10^3/uL (140-450); Red Blood Cells 3.58 10^6/uL (4.0-5.20); Red Cell Distribution Width 19.6 % (11.8-14.3); White Blood Cell 17.8 10^3/uL (4.4-10.8)
[2017-11-25 05:20] LABS: BUN/Creatinine Ratio 11.8; Calcium 9.5 mg/dL (8.5-10.1); Potassium 4.3 mmol/L (3.5-5.1)
[2017-11-25] MEDS: METOCLOPRAMIDE HCL 5MG/ml INJ 2ml VIAL IV SCH ×3 (05:44→21:55)
[2017-11-25] MEDS: FUROSEMIDE 40 MG/4 ML VIAL IV SCH ×2 (05:44→19:04)
[2017-11-25] MEDS: ISOSORBIDE DINITRATE 10 MG TAB PO SCH ×3 (06:22→19:05)
[2017-11-25] MEDS: LEVOFLOXACIN 500MG 100 ML IV SCH (10:01)
[2017-11-25] MEDS: POTASSIUM EFFERVESENT TAB 25 MEQ GT SCH ×2 (10:01→21:55)
[2017-11-25] MEDS: ENOXAPARIN SOD 40 MG/0.4 ML SYRINGE SC SCH (10:01)
[2017-11-25] MEDS: ASPirin 81 mg TAB PO SCH (10:01)
[2017-11-25] MEDS: PANTOPRAZOLE 40 MG/10 ML VIAL IV SCH (10:02)
[2017-11-25] MEDS: SODIUM CHLOR 0.9% PF (SALINE LOCK) 10ML VIAL/SYR IV SCH ×2 (10:02→22:03)
[2017-11-25] MEDS: METOPROLOL TARTRATE 50 MG TAB PO SCH ×2 (10:02→22:02)
[2017-11-25] MEDS: MICAFUNGIN SODIUM 100 MG in SODIUM CHL 0.9% 100 ML IV SCH (12:06)
[2017-11-25] MEDS: MIRTAZAPINE 30 MG TAB PO SCH (21:57)
[2017-11-26] VITALS (9 sets, daily range): BP systolic 129–173; BP diastolic 54–74
[2017-11-26] MEDS: ALBUTEROL SULF 2.5 MG/0.5ML(0.5%) NEB SOLN NEB SCH ×4 (00:29→18:18)
[2017-11-26] MEDS: IPRATROPIUM BROM 0.5 MG/2.5ML INH SOL NEB SCH ×4 (00:29→18:18)
[2017-11-26] MEDS: ACCU-CHEK COMFORT CURVE STRIP VI SCH ×4 (00:30→17:41)
[2017-11-26] MEDS: hydrALAZINE HCL 25 MG TAB PO SCH ×4 (00:30→17:55)
[2017-11-26] MEDS: InsuLIN REG 1unit/0.01ml Soln (100units/ml) SC SCH ×4 (00:31→17:42)
[2017-11-26] MEDS: METOCLOPRAMIDE HCL 5MG/ml INJ 2ml VIAL IV SCH (05:28)
[2017-11-26 05:37] LABS: Albumin 2.4 g/dL (3.4-5.0); BUN/Creatinine Ratio 10.9; Bilirubin, Total 0.6 mg/dL (0.2-1.0); Calcium 9.8 mg/dL (8.5-10.1); Potassium 4.4 mmol/L (3.5-5.1); Total Protein 7.5 g/dL (6.4-8.2)
[2017-11-26 05:39] LABS: Basophils # (auto) 0.1 uL; Basophils % (auto) 0.4 % (0.0-2.0); Eosinophils # (auto) 0.1 uL; Eosinophils % (auto) 0.3 % (0.0-7.0); Hematocrit 28.7 % (36.0-46.0); Hemoglobin 9.4 g/dL (12.2-16.2); Lymphocytes # (auto) 4.5 uL; Lymphocytes % (auto) 25.7 % (10.0-50.0); Mean Corpuscular Hemoglobin 27.2 pg (28.0-32.0); Mean Corpuscular Hgb Conc. 32.8 g/dL (32.0-36.0); Mean Corpuscular Volume 82.9 fL (80.0-100.0); Monocytes # (auto) 1.8 uL; Monocytes % (auto) 10.5 % (0.0-12.0); Neutrophils % (auto) 63.1 % (37.0-80.0); Nucleated Red Blood Cells % 0.1 %; Platelet Count (auto) 314 10^3/uL (140-450); Red Blood Cells 3.46 10^6/uL (4.0-5.20); Red Cell Distribution Width 19.7 % (11.8-14.3); White Blood Cell 17.5 10^3/uL (4.4-10.8)
[2017-11-26] MEDS: ISOSORBIDE DINITRATE 10 MG TAB PO SCH ×3 (06:33→17:54)
[2017-11-26] MEDS: FUROSEMIDE 40 MG/4 ML VIAL IV SCH (06:33)
[2017-11-26] MEDS: ENOXAPARIN SOD 40 MG/0.4 ML SYRINGE SC SCH (09:31)
[2017-11-26] MEDS: ASPirin 81 mg TAB PO SCH (09:32)
[2017-11-26] MEDS: LEVOFLOXACIN 500MG 100 ML IV SCH (09:32)
[2017-11-26] MEDS: PANTOPRAZOLE 40 MG/10 ML VIAL IV SCH (09:32)
[2017-11-26] MEDS: METOPROLOL TARTRATE 50 MG TAB PO SCH ×2 (09:32→21:29)
[2017-11-26] MEDS: POTASSIUM EFFERVESENT TAB 25 MEQ GT SCH (09:32)
[2017-11-26] MEDS: SODIUM CHLOR 0.9% PF (SALINE LOCK) 10ML VIAL/SYR IV SCH ×2 (09:33→22:00)
[2017-11-26] MEDS: LABETALOL HCL 5 MG/ML ML 20ML VIAL IV PRN (16:16)
[2017-11-26] MEDS: MIRTAZAPINE 30 MG TAB PO SCH (21:29)
[2017-11-27] VITALS: BP 150/53
[2017-11-27] MEDS: hydrALAZINE HCL 25 MG TAB PO SCH ×4 (00:06→17:53)
[2017-11-27] MEDS: ACCU-CHEK COMFORT CURVE STRIP VI SCH ×4 (00:13→17:52)
[2017-11-27] MEDS: InsuLIN REG 1unit/0.01ml Soln (100units/ml) SC SCH ×4 (00:13→17:53)
[2017-11-27] MEDS: IPRATROPIUM BROM 0.5 MG/2.5ML INH SOL NEB SCH ×4 (00:14→18:40)
[2017-11-27] MEDS: ALBUTEROL SULF 2.5 MG/0.5ML(0.5%) NEB SOLN NEB SCH ×4 (00:14→18:40)
[2017-11-27 05:30] LABS: Basophils # (auto) 0.1 uL; Eosinophils # (auto) 0.1 uL; Eosinophils % (auto) 0.4 % (0.0-7.0); Hemoglobin 9.3 g/dL (12.2-16.2); Mean Corpuscular Volume 82.5 fL (80.0-100.0)
[2017-11-27 05:32] LABS: Basophils % (auto) 0.3 % (0.0-2.0); Hematocrit 29.2 % (36.0-46.0); Lymphocytes # (auto) 4.1 uL; Lymphocytes % (auto) 22.5 % (10.0-50.0); Mean Corpuscular Hemoglobin 26.4 pg (28.0-32.0); Monocytes # (auto) 1.9 uL; Monocytes % (auto) 10.6 % (0.0-12.0); Neutrophils % (auto) 66.2 % (37.0-80.0); Platelet Count (auto) 310 10^3/uL (140-450); Red Blood Cells 3.54 10^6/uL (4.0-5.20); Red Cell Distribution Width 19.9 % (11.8-14.3); White Blood Cell 18.1 10^3/uL (4.4-10.8)
[2017-11-27 05:44] LABS: BUN/Creatinine Ratio 14.3; Calcium 9.6 mg/dL (8.5-10.1)
[2017-11-27] MEDS: ISOSORBIDE DINITRATE 10 MG TAB PO SCH ×3 (05:52→17:52)
[2017-11-27 08:00] VITALS: BP 134/62
[2017-11-27] MEDS: PANTOPRAZOLE 40 MG/10 ML VIAL IV SCH (09:20)
[2017-11-27] MEDS: POTASSIUM EFFERVESENT TAB 25 MEQ GT SCH (09:20)
[2017-11-27] MEDS: LEVOFLOXACIN 500MG 100 ML IV SCH (09:21)
[2017-11-27] MEDS: FUROSEMIDE 40 MG/4 ML VIAL IV SCH (09:21)
[2017-11-27] MEDS: ASPirin 81 mg TAB PO SCH (09:22)
[2017-11-27] MEDS: METOPROLOL TARTRATE 50 MG TAB PO SCH ×2 (09:22→21:29)
[2017-11-27] MEDS: ENOXAPARIN SOD 40 MG/0.4 ML SYRINGE SC SCH (09:23)
[2017-11-27] MEDS: SODIUM CHLOR 0.9% PF (SALINE LOCK) 10ML VIAL/SYR IV SCH ×2 (09:23→21:28)
[2017-11-27] MEDS ORDERED: cefTRIAXone 1GM/10ml IVPUSH 10 ML IV ONE (11:15)
[2017-11-27] MEDS ORDERED: MORPHINE SULF INJ 2 MG/ML SYRINGE 1ML IV PRN (11:15)
[2017-11-27] MEDS ORDERED: LORazepam 2MG/ML-1ML VIAL IV PRN (11:15)
[2017-11-27 12:00] VITALS: BP 131/58
[2017-11-27 16:00] VITALS: BP 135/71
[2017-11-27 20:10] VITALS: BP 154/97
[2017-11-27] MEDS: MIRTAZAPINE 30 MG TAB PO SCH (21:29)
[2017-11-28] VITALS: BP 162/65
[2017-11-28] MEDS: hydrALAZINE HCL 25 MG TAB PO SCH ×4 (00:01→18:00)
[2017-11-28] MEDS: InsuLIN REG 1unit/0.01ml Soln (100units/ml) SC SCH ×4 (00:01→18:49)
[2017-11-28] MEDS: IPRATROPIUM BROM 0.5 MG/2.5ML INH SOL NEB SCH ×4 (00:16→18:31)
[2017-11-28] MEDS: ALBUTEROL SULF 2.5 MG/0.5ML(0.5%) NEB SOLN NEB SCH ×4 (00:16→18:31)
[2017-11-28 04:00] VITALS: BP 166/61
[2017-11-28 05:54] LABS: Basophils % (auto) 0.3 % (0.0-2.0); Eosinophils # (auto) 0.1 uL; Eosinophils % (auto) 0.6 % (0.0-7.0)
[2017-11-28 06:01] LABS: Basophils # (auto) 0 uL; Hematocrit 29.9 % (36.0-46.0); Hemoglobin 9.7 g/dL (12.2-16.2); Lymphocytes # (auto) 4.1 uL; Lymphocytes % (auto) 26.1 % (10.0-50.0); Mean Corpuscular Hemoglobin 26.8 pg (28.0-32.0); Mean Corpuscular Hgb Conc. 32.4 g/dL (32.0-36.0); Mean Corpuscular Volume 82.8 fL (80.0-100.0); Monocytes # (auto) 1.7 uL; Monocytes % (auto) 10.8 % (0.0-12.0); Neutrophils # (auto) 9.8 uL; Neutrophils % (auto) 62.2 % (37.0-80.0); Platelet Count (auto) 322 10^3/uL (140-450); Red Blood Cells 3.61 10^6/uL (4.0-5.20); White Blood Cell 15.8 10^3/uL (4.4-10.8)
[2017-11-28] MEDS: ACCU-CHEK COMFORT CURVE STRIP VI SCH ×4 (06:24→18:47)
[2017-11-28 06:25] LABS: Potassium 3.8 mmol/L (3.5-5.1)
[2017-11-28] MEDS: ISOSORBIDE DINITRATE 10 MG TAB PO SCH ×3 (06:25→18:46)
[2017-11-28 06:28] LABS: Red Cell Distribution Width 20.3 % (11.8-14.3)
[2017-11-28 06:32] LABS: BUN/Creatinine Ratio 14.6; Calcium 9.9 mg/dL (8.5-10.1)
[2017-11-28 08:00] VITALS: BP 136/76
[2017-11-28] MEDS: ENOXAPARIN SOD 30 MG/0.3 ML SYRINGE SC SCH (09:46)
[2017-11-28] MEDS: ASPirin 81 mg TAB PO SCH (09:46)
[2017-11-28] MEDS: cefTRIAXone 1GM/10ml IVPUSH 10 ML IV SCH (09:47)
[2017-11-28] MEDS: PANTOPRAZOLE 40 MG/10 ML VIAL IV SCH (09:47)
[2017-11-28] MEDS ORDERED: ENOXAPARIN SOD 40 MG/0.4 ML SYRINGE SC SCH (10:00)
[2017-11-28] MEDS: METOPROLOL TARTRATE 50 MG TAB PO SCH ×3 (10:00→21:32)
[2017-11-28] MEDS: POTASSIUM EFFERVESENT TAB 25 MEQ GT SCH (10:11)
[2017-11-28] MEDS: FUROSEMIDE 40 MG/4 ML VIAL IV SCH (10:11)
[2017-11-28] MEDS: SODIUM CHLOR 0.9% PF (SALINE LOCK) 10ML VIAL/SYR IV SCH ×2 (10:12→21:32)
[2017-11-28 12:00] VITALS: BP 139/58
[2017-11-28 19:40] LABS: % Iron Saturation 17.9 % (15-50)
[2017-11-28 20:00] VITALS: BP 140/64
[2017-11-28] MEDS: ACETAMINOPHEN 650 mg PER 20 mL UD GT PRN (20:30)
[2017-11-28 21:00] VITALS: BP 124/84
[2017-11-28] MEDS: MIRTAZAPINE 30 MG TAB PO SCH (21:32)
[2017-11-29] VITALS: BP 150/96
[2017-11-29] MEDS: ALBUTEROL SULF 2.5 MG/0.5ML(0.5%) NEB SOLN NEB SCH ×4 (00:37→19:17)
[2017-11-29] MEDS: IPRATROPIUM BROM 0.5 MG/2.5ML INH SOL NEB SCH ×4 (00:37→19:18)
[2017-11-29] MEDS ORDERED: hydrALAZINE HCL 25 MG TAB ONE ×2 (00:43→00:48)
[2017-11-29] MEDS: ACCU-CHEK COMFORT CURVE STRIP VI SCH ×5 (00:51→23:12)
[2017-11-29] MEDS: InsuLIN REG 1unit/0.01ml Soln (100units/ml) SC SCH ×5 (00:51→23:13)
[2017-11-29] MEDS: hydrALAZINE HCL 25 MG TAB PO SCH ×4 (00:52→15:52)
[2017-11-29 04:00] VITALS: BP 144/68
[2017-11-29 05:24] LABS: Basophils # (auto) 0.1 uL; Basophils % (auto) 0.4 % (0.0-2.0); Eosinophils # (auto) 0.1 uL; Eosinophils % (auto) 0.7 % (0.0-7.0); Hematocrit 31.1 % (36.0-46.0); Hemoglobin 10.1 g/dL (12.2-16.2); Lymphocytes # (auto) 3.6 uL; Lymphocytes % (auto) 22.6 % (10.0-50.0); Mean Corpuscular Hgb Conc. 32.3 g/dL (32.0-36.0); Mean Corpuscular Volume 83.4 fL (80.0-100.0); Monocytes # (auto) 1.7 uL; Monocytes % (auto) 10.7 % (0.0-12.0); Neutrophils # (auto) 10.6 uL; Neutrophils % (auto) 65.6 % (37.0-80.0); Platelet Count (auto) 323 10^3/uL (140-450); Red Blood Cells 3.73 10^6/uL (4.0-5.20); White Blood Cell 16.1 10^3/uL (4.4-10.8)
[2017-11-29 05:39] LABS: BUN/Creatinine Ratio 15.9; Calcium 9.7 mg/dL (8.5-10.1); Potassium 3.5 mmol/L (3.5-5.1)
[2017-11-29 05:44] LABS: Red Cell Distribution Width 20.4 % (11.8-14.3)
[2017-11-29] MEDS: ISOSORBIDE DINITRATE 10 MG TAB PO SCH ×3 (06:32→17:40)
[2017-11-29] MEDS: POTASSIUM EFFERVESENT TAB 25 MEQ GT SCH (11:02)
[2017-11-29] MEDS: cefTRIAXone 1GM/10ml IVPUSH 10 ML IV SCH (11:02)
[2017-11-29] MEDS: SODIUM CHLOR 0.9% PF (SALINE LOCK) 10ML VIAL/SYR IV SCH ×2 (11:02→21:30)
[2017-11-29] MEDS: ASPirin 81 mg TAB PO SCH (11:02)
[2017-11-29] MEDS: FUROSEMIDE 40 MG TAB PO SCH (11:02)
[2017-11-29] MEDS: PANTOPRAZOLE 40 MG TAB PO SCH (11:03)
[2017-11-29] MEDS: METOPROLOL TARTRATE 50 MG TAB PO SCH ×2 (11:03→21:30)
[2017-11-29] MEDS: ENOXAPARIN SOD 30 MG/0.3 ML SYRINGE SC SCH (11:03)
[2017-11-29] MEDS: ACETAMINOPHEN 650 mg PER 20 mL UD GT PRN (11:49)
[2017-11-29 11:55] VITALS: BP 150/69
[2017-11-29] MEDS ORDERED: FLUCONAZOLE 200MG/100ML 100 ML IV ONE (12:30)
[2017-11-29 15:51] VITALS: BP 162/75
[2017-11-29 19:48] VITALS: BP 122/60
[2017-11-29 20:53] VITALS: BP 122/60
[2017-11-29] MEDS: MIRTAZAPINE 30 MG TAB PO SCH (21:29)
[2017-11-30] VITALS: BP 117/74
[2017-11-30] MEDS: ALBUTEROL SULF 2.5 MG/0.5ML(0.5%) NEB SOLN NEB SCH ×4 (00:41→18:42)
[2017-11-30] MEDS: IPRATROPIUM BROM 0.5 MG/2.5ML INH SOL NEB SCH ×4 (00:41→18:42)
[2017-11-30 04:10] VITALS: BP 127/64
[2017-11-30] MEDS: ISOSORBIDE DINITRATE 10 MG TAB PO SCH ×3 (06:12→18:04)
[2017-11-30] MEDS: hydrALAZINE HCL 25 MG TAB PO SCH ×4 (06:12→18:04)
[2017-11-30] MEDS: ACCU-CHEK COMFORT CURVE STRIP VI SCH ×3 (06:13→18:04)
[2017-11-30] MEDS: InsuLIN REG 1unit/0.01ml Soln (100units/ml) SC SCH ×3 (06:13→18:05)
[2017-11-30 07:30] VITALS: BP 127/52
[2017-11-30 08:32] LABS: Basophils # (auto) 0.1 uL; Basophils % (auto) 0.6 % (0.0-2.0); Eosinophils # (auto) 0.1 uL; Monocytes # (auto) 1.4 uL
[2017-11-30 08:35] LABS: Eosinophils % (auto) 0.7 % (0.0-7.0); Lymphocytes # (auto) 3.7 uL; Lymphocytes % (auto) 23.1 % (10.0-50.0); Mean Corpuscular Hemoglobin 27.6 pg (28.0-32.0); Mean Corpuscular Hgb Conc. 33.4 g/dL (32.0-36.0); Mean Corpuscular Volume 82.7 fL (80.0-100.0); Monocytes % (auto) 8.6 % (0.0-12.0); Neutrophils # (auto) 10.7 uL; Platelet Count (auto) 302 10^3/uL (140-450); Red Blood Cells 3.62 10^6/uL (4.0-5.20); Red Cell Distribution Width 19.9 % (11.8-14.3)
[2017-11-30] MEDS: cefTRIAXone 1GM/10ml IVPUSH 10 ML IV SCH (09:30)
[2017-11-30] MEDS: POTASSIUM EFFERVESENT TAB 25 MEQ GT SCH (09:31)
[2017-11-30] MEDS: FLUCONAZOLE 200MG/100ML 100 ML IV SCH (09:33)
[2017-11-30] MEDS: SODIUM CHLOR 0.9% PF (SALINE LOCK) 10ML VIAL/SYR IV SCH ×2 (09:33→21:55)
[2017-11-30] MEDS: PANTOPRAZOLE 40 MG TAB PO SCH (09:33)
[2017-11-30] MEDS: ENOXAPARIN SOD 30 MG/0.3 ML SYRINGE SC SCH (09:33)
[2017-11-30] MEDS: ASPirin 81 mg TAB PO SCH (09:34)
[2017-11-30] MEDS: METOPROLOL TARTRATE 50 MG TAB PO SCH ×2 (09:34→21:55)
[2017-11-30] MEDS: FUROSEMIDE 40 MG TAB PO SCH (09:35)
[2017-11-30] MEDS ORDERED: CITALOPRAM HYDROBR 20 MG TAB PO ONE (11:30)
[2017-11-30 12:00] VITALS: BP 135/68
[2017-11-30] MEDS: cefTAZidime 1 GM in SODIUM CHL 0.9% 50 ML IV SCH ×2 (13:12→21:54)
[2017-11-30 16:00] VITALS: BP 126/109
[2017-11-30 20:00] VITALS: BP 138/112
[2017-11-30] MEDS: Glucerna 1.2 Cal 1Liter BOTTLE GT SCH (20:31)
[2017-11-30] MEDS: MIRTAZAPINE 30 MG TAB PO SCH (21:54)
[2017-12-01] VITALS: BP 133/58
[2017-12-01] MEDS: IPRATROPIUM BROM 0.5 MG/2.5ML INH SOL NEB SCH ×4 (00:47→18:40)
[2017-12-01] MEDS: ACCU-CHEK COMFORT CURVE STRIP VI SCH ×5 (00:47→23:58)
[2017-12-01] MEDS: ALBUTEROL SULF 2.5 MG/0.5ML(0.5%) NEB SOLN NEB SCH ×4 (00:47→18:40)
[2017-12-01] MEDS: hydrALAZINE HCL 25 MG TAB PO SCH ×5 (00:47→23:58)
[2017-12-01] MEDS: InsuLIN REG 1unit/0.01ml Soln (100units/ml) SC SCH ×5 (00:47→23:58)
[2017-12-01] MEDS: cefTAZidime 1 GM in SODIUM CHL 0.9% 50 ML IV SCH ×3 (05:24→21:32)
[2017-12-01 05:39] LABS: Basophils # (auto) 0.1 uL; Basophils % (auto) 0.8 % (0.0-2.0); Eosinophils # (auto) 0.1 uL; Eosinophils % (auto) 0.3 % (0.0-7.0); Hematocrit 29.1 % (36.0-46.0); Hemoglobin 9.4 g/dL (12.2-16.2); Lymphocytes # (auto) 4.7 uL; Lymphocytes % (auto) 25.9 % (10.0-50.0); Mean Corpuscular Hemoglobin 27.1 pg (28.0-32.0); Mean Corpuscular Hgb Conc. 32.4 g/dL (32.0-36.0); Mean Corpuscular Volume 83.6 fL (80.0-100.0); Monocytes # (auto) 1.6 uL; Monocytes % (auto) 8.6 % (0.0-12.0); Neutrophils # (auto) 11.7 uL; Neutrophils % (auto) 64.4 % (37.0-80.0); Nucleated Red Blood Cells % 0.1 %; Platelet Count (auto) 308 10^3/uL (140-450); Red Blood Cells 3.48 10^6/uL (4.0-5.20); White Blood Cell 18.1 10^3/uL (4.4-10.8)
[2017-12-01 05:44] LABS: Red Cell Distribution Width 20.1 % (11.8-14.3)
[2017-12-01] MEDS: ISOSORBIDE DINITRATE 10 MG TAB PO SCH ×3 (05:54→18:20)
[2017-12-01 05:55] LABS: BUN/Creatinine Ratio 22.5; Calcium 9.4 mg/dL (8.5-10.1); Potassium 3.9 mmol/L (3.5-5.1)
[2017-12-01 07:30] VITALS: BP 136/61
[2017-12-01] MEDS: POTASSIUM EFFERVESENT TAB 25 MEQ GT SCH (10:16)
[2017-12-01] MEDS: SODIUM CHLOR 0.9% PF (SALINE LOCK) 10ML VIAL/SYR IV SCH ×2 (10:16→21:32)
[2017-12-01] MEDS: FLUCONAZOLE 200MG/100ML 100 ML IV SCH (10:16)
[2017-12-01] MEDS: CITALOPRAM HYDROBR 20 MG TAB PO SCH (10:17)
[2017-12-01] MEDS: METOPROLOL TARTRATE 50 MG TAB PO SCH ×2 (10:17→21:34)
[2017-12-01] MEDS: PANTOPRAZOLE 40 MG TAB PO SCH (10:17)
[2017-12-01] MEDS: ASPirin 81 mg TAB PO SCH (10:17)
[2017-12-01] MEDS: FUROSEMIDE 40 MG TAB PO SCH (10:17)
[2017-12-01] MEDS: ENOXAPARIN SOD 30 MG/0.3 ML SYRINGE SC SCH (10:18)
[2017-12-01 12:05] VITALS: BP 169/62
[2017-12-01 13:00] VITALS: BP 148/68
[2017-12-01 15:46] VITALS: BP 122/78
[2017-12-01 20:09] VITALS: BP 142/62
[2017-12-01] MEDS: MIRTAZAPINE 30 MG TAB PO SCH (21:34)
[2017-12-02] VITALS (7 sets, daily range): BP systolic 120–158; BP diastolic 63–87
[2017-12-02] MEDS: IPRATROPIUM BROM 0.5 MG/2.5ML INH SOL NEB SCH ×5 (00:34→23:55)
[2017-12-02] MEDS: ALBUTEROL SULF 2.5 MG/0.5ML(0.5%) NEB SOLN NEB SCH ×5 (00:34→23:55)
[2017-12-02] MEDS: LABETALOL HCL 5 MG/ML ML 20ML VIAL IV PRN (03:25)
[2017-12-02 04:43] LABS: Basophils # (auto) 0.1 uL; Hemoglobin 8.8 g/dL (12.2-16.2); Neutrophils # (auto) 10.2 uL; Red Cell Distribution Width 19.9 % (11.8-14.3)
[2017-12-02 04:44] LABS: Basophils % (auto) 0.5 % (0.0-2.0); Eosinophils # (auto) 0.1 uL; Eosinophils % (auto) 0.8 % (0.0-7.0); Hematocrit 27.8 % (36.0-46.0); Lymphocytes # (auto) 4.6 uL; Lymphocytes % (auto) 28.2 % (10.0-50.0); Mean Corpuscular Hemoglobin 26.5 pg (28.0-32.0); Mean Corpuscular Hgb Conc. 31.7 g/dL (32.0-36.0); Mean Corpuscular Volume 83.4 fL (80.0-100.0); Monocytes # (auto) 1.3 uL; Neutrophils % (auto) 62.5 % (37.0-80.0); Platelet Count (auto) 301 10^3/uL (140-450); Red Blood Cells 3.33 10^6/uL (4.0-5.20); White Blood Cell 16.4 10^3/uL (4.4-10.8)
[2017-12-02 04:59] LABS: BUN/Creatinine Ratio 25.5; Calcium 9.4 mg/dL (8.5-10.1); Potassium 3.7 mmol/L (3.5-5.1)
[2017-12-02] MEDS: cefTAZidime 1 GM in SODIUM CHL 0.9% 50 ML IV SCH ×3 (06:48→21:32)
[2017-12-02] MEDS: hydrALAZINE HCL 25 MG TAB PO SCH ×4 (06:49→23:46)
[2017-12-02] MEDS: ISOSORBIDE DINITRATE 10 MG TAB PO SCH ×3 (06:49→18:47)
[2017-12-02] MEDS: InsuLIN REG 1unit/0.01ml Soln (100units/ml) SC SCH ×4 (06:50→23:40)
[2017-12-02] MEDS: ACCU-CHEK COMFORT CURVE STRIP VI SCH ×4 (06:50→23:39)
[2017-12-02] MEDS: ASPirin 81 mg TAB PO SCH (10:54)
[2017-12-02] MEDS: CITALOPRAM HYDROBR 20 MG TAB PO SCH (10:55)
[2017-12-02] MEDS: PANTOPRAZOLE 40 MG TAB PO SCH (10:55)
[2017-12-02] MEDS: FLUCONAZOLE 200MG/100ML 100 ML IV SCH (10:55)
[2017-12-02] MEDS: SODIUM CHLOR 0.9% PF (SALINE LOCK) 10ML VIAL/SYR IV SCH ×2 (10:55→21:32)
[2017-12-02] MEDS: POTASSIUM EFFERVESENT TAB 25 MEQ GT SCH (10:55)
[2017-12-02] MEDS: ENOXAPARIN SOD 40 MG/0.4 ML SYRINGE SC SCH (10:55)
[2017-12-02] MEDS: METOPROLOL TARTRATE 50 MG TAB PO SCH ×2 (10:56→21:34)
[2017-12-02] MEDS: FUROSEMIDE 40 MG TAB PO SCH (10:56)
[2017-12-02] MEDS: MIRTAZAPINE 30 MG TAB PO SCH (21:33)
[2017-12-03] VITALS: BP 169/71
[2017-12-03 04:00] VITALS: BP 154/58
[2017-12-03 05:19] LABS: Hemoglobin 9.2 g/dL (12.2-16.2); Nucleated Red Blood Cells % 0.1 %; Red Blood Cells 3.43 10^6/uL (4.0-5.20)
[2017-12-03 05:27] LABS: Calcium 9.8 mg/dL (8.5-10.1); Potassium 3.8 mmol/L (3.5-5.1)
[2017-12-03 05:39] LABS: Basophils % (auto) 0.3 % (0.0-2.0); Eosinophils % (auto) 2.2 % (0.0-7.0); Lymphocytes # (auto) 3.7 uL; Lymphocytes % (auto) 26.6 % (10.0-50.0); Monocytes # (auto) 1.3 uL; Monocytes % (auto) 9.2 % (0.0-12.0); Neutrophils # (auto) 8.5 uL; Neutrophils % (auto) 61.7 % (37.0-80.0); White Blood Cell 13.7 10^3/uL (4.4-10.8)
[2017-12-03 05:40] LABS: Basophils # (auto) 0 uL; Eosinophils # (auto) 0.3 uL; Mean Corpuscular Hemoglobin 26.9 pg (28.0-32.0); Mean Corpuscular Hgb Conc. 31.8 g/dL (32.0-36.0); Mean Corpuscular Volume 84.5 fL (80.0-100.0); Platelet Count (auto) 302 10^3/uL (140-450); Red Cell Distribution Width 19.5 % (11.8-14.3)
[2017-12-03] MEDS: ACCU-CHEK COMFORT CURVE STRIP VI SCH ×3 (05:48→18:34)
[2017-12-03] MEDS: InsuLIN REG 1unit/0.01ml Soln (100units/ml) SC SCH ×3 (05:48→18:35)
[2017-12-03] MEDS: cefTAZidime 1 GM in SODIUM CHL 0.9% 50 ML IV SCH ×2 (05:49→13:56)
[2017-12-03] MEDS: ISOSORBIDE DINITRATE 10 MG TAB PO SCH ×3 (05:54→18:34)
[2017-12-03] MEDS: hydrALAZINE HCL 25 MG TAB PO SCH ×3 (05:54→18:00)
[2017-12-03] MEDS: ALBUTEROL SULF 2.5 MG/0.5ML(0.5%) NEB SOLN NEB SCH ×3 (07:00→18:24)
[2017-12-03] MEDS: IPRATROPIUM BROM 0.5 MG/2.5ML INH SOL NEB SCH ×3 (07:01→18:24)
[2017-12-03 08:00] VITALS: BP 135/70
[2017-12-03] MEDS: CITALOPRAM HYDROBR 20 MG TAB PO SCH (09:53)
[2017-12-03] MEDS: POTASSIUM EFFERVESENT TAB 25 MEQ GT SCH (09:53)
[2017-12-03] MEDS: FLUCONAZOLE 200MG/100ML 100 ML IV SCH (09:53)
[2017-12-03] MEDS: ASPirin 81 mg TAB PO SCH (09:54)
[2017-12-03] MEDS: ENOXAPARIN SOD 40 MG/0.4 ML SYRINGE SC SCH (09:54)
[2017-12-03] MEDS: PANTOPRAZOLE 40 MG TAB PO SCH (09:54)
[2017-12-03] MEDS: METOPROLOL TARTRATE 50 MG TAB PO SCH (10:09)
[2017-12-03] MEDS: FUROSEMIDE 40 MG TAB PO SCH (10:09)
[2017-12-03] MEDS ORDERED: OMEPRAZOLE 20MG/10ML ORAL SUSP GT ONE (11:30)
[2017-12-03 11:52] VITALS: BP 186/83
[2017-12-03] MEDS ORDERED: MORPHINE SULF INJ 2 MG/ML SYRINGE 1ML IV PRN (12:00)
[2017-12-03] MEDS: SODIUM CHLOR 0.9% PF (SALINE LOCK) 10ML VIAL/SYR IV SCH (12:04)
[2017-12-03 15:55] VITALS: BP 148/52
[2017-12-03 19:50] VITALS: BP 135/82
[2017-12-04] MEDS ORDERED: OMEPRAZOLE 20MG/10ML ORAL SUSP GT SCH (10:00)
== END 2017-12-03 20:23 | DRG 3 ==
LOC: EDBD 05:09 → ER 05:09 → ICU WEST 05:10 → DOU IN ICU 11-23 17:20
PROVIDERS: ADMIT Internal Medicine; ATTEND Internal Medicine
PROC: 5A1955Z Respiratory Ventilation, Greater than 96 Consecutive Hours (ICD-10-PCS; principal; 2017-10-21)
PROC: 0BH17EZ Insertion of Endotracheal Airway into Trachea, Via Natural or Artificial Opening (ICD-10-PCS; 2017-10-21)
PROC: 04703ZZ Dilation of Abdominal Aorta, Percutaneous Approach (ICD-10-PCS; 2017-10-29)
PROC: 047D3ZZ Dilation of Left Common Iliac Artery, Percutaneous Approach (ICD-10-PCS; 2017-10-29)
PROC: 047L3ZZ Dilation of Left Femoral Artery, Percutaneous Approach (ICD-10-PCS; 2017-10-29)
PROC: B2111ZZ Fluoroscopy of Multiple Coronary Arteries using Low Osmolar Contrast (ICD-10-PCS; 2017-10-29)
PROC: B2161ZZ Fluoroscopy of Right and Left Heart using Low Osmolar Contrast (ICD-10-PCS; 2017-10-29)
PROC: B41F1ZZ Fluoroscopy of Right Lower Extremity Arteries using Low Osmolar Contrast (ICD-10-PCS; 2017-10-29)
PROC: B4101ZZ Fluoroscopy of Abdominal Aorta using Low Osmolar Contrast (ICD-10-PCS; 2017-10-29)
PROC: B41G1ZZ Fluoroscopy of Left Lower Extremity Arteries using Low Osmolar Contrast (ICD-10-PCS; 2017-10-29)
PROC: 4A023N7 Measurement of Cardiac Sampling and Pressure, Left Heart, Percutaneous Approach (ICD-10-PCS; 2017-10-29)
PROC: 009U3ZX Drainage of Spinal Canal, Percutaneous Approach, Diagnostic (ICD-10-PCS; 2017-11-03)
PROC: B24BZZ4 Ultrasonography of Heart with Aorta, Transesophageal (ICD-10-PCS; 2017-11-09)
PROC: 30233N1 Transfusion of Nonautologous Red Blood Cells into Peripheral Vein, Percutaneous Approach (ICD-10-PCS; 2017-11-11)
PROC: 0B110F4 Bypass Trachea to Cutaneous with Tracheostomy Device, Open Approach (ICD-10-PCS; 2017-11-16)
PROC: 0DH63UZ Insertion of Feeding Device into Stomach, Percutaneous Approach (ICD-10-PCS; 2017-11-20)
DX: A41.9 Sepsis, unspecified organism (principal); J96.01 Acute respiratory failure with hypoxia; I50.43 Acute on chronic combined systolic (congestive) and diastolic (congestive) heart failure; R65.21 Severe sepsis with septic shock; N17.0 Acute kidney failure with tubular necrosis; J69.0 Pneumonitis due to inhalation of food and vomit; G92 Toxic encephalopathy; G93.6 Cerebral edema; I13.0 Hypertensive heart and chronic kidney disease with heart failure and stage 1 through stage 4 chronic kidney disease, or unspecified chronic kidney disease; J44.0 Chronic obstructive pulmonary disease with (acute) lower respiratory infection; E44.0 Moderate protein-calorie malnutrition; D68.9 Coagulation defect, unspecified; E87.3 Alkalosis; G72.81 Critical illness myopathy; G93.1 Anoxic brain damage, not elsewhere classified; I82.612 Acute embolism and thrombosis of superficial veins of left upper extremity; J45.901 Unspecified asthma with (acute) exacerbation; J98.11 Atelectasis; N18.4 Chronic kidney disease, stage 4 (severe); Z99.11 Dependence on respirator [ventilator] status; I47.1 Supraventricular tachycardia; I74.5 Embolism and thrombosis of iliac artery; E11.65 Type 2 diabetes mellitus with hyperglycemia; D72.820 Lymphocytosis (symptomatic); Z88.8 Allergy status to other drugs, medicaments and biological substances; B96.1 Klebsiella pneumoniae [K. pneumoniae] as the cause of diseases classified elsewhere; D63.8 Anemia in other chronic diseases classified elsewhere; E11.21 Type 2 diabetes mellitus with diabetic nephropathy; E11.22 Type 2 diabetes mellitus with diabetic chronic kidney disease; E11.40 Type 2 diabetes mellitus with diabetic neuropathy, unspecified; E11.51 Type 2 diabetes mellitus with diabetic peripheral angiopathy without gangrene; E66.01 Morbid (severe) obesity due to excess calories; E83.41 Hypermagnesemia; E87.6 Hypokalemia; F17.200 Nicotine dependence, unspecified, uncomplicated; F32.9 Major depressive disorder, single episode, unspecified; G89.4 Chronic pain syndrome; I08.1 Rheumatic disorders of both mitral and tricuspid valves; I25.10 Atherosclerotic heart disease of native coronary artery without angina pectoris; I25.5 Ischemic cardiomyopathy; I27.20 Pulmonary hypertension, unspecified; L89.159 Pressure ulcer of sacral region, unspecified stage; Z68.25 Body mass index [BMI] 25.0-25.9, adult; Z83.3 Family history of diabetes mellitus; I67.2 Cerebral atherosclerosis
CPT/HCPCS: 31500; 36415; 36569; 36600; 37224; 43246; 70450; 71045; 74018; 80048; 80053; 80202; 81001; 82784; 82805; 82945; 82962; 83036; 83540; 83550; 83735; 83880; 84100; 84132; 84157; 84443; 84484; 84550; 85007; 85014; 85018; 85025; 85027; 85379; 85610; 85730; 86850; 86900; 86901; 86920; 87040; 87070; 87077; 87081; 87086; 87186; 87205; 87493; 89051; 93005; 93306; 93312; 93313; 93458; 93970; 93971; 94002; 94003; 94640; 94660; 95819; 96361; 96365; 96375; 97110; 97163; 97530; 99152; A4605; A6257; C1876; C9113; J0131; J0330; J0696; J1450; J1815; J1956; J2001; J2248; J2250; J2405; J2543; J2704; J3480; J3490; J7060; P9047; Q9967